=== PATIENT | female | born 1965 | race Caucasian/White ===

== ENCOUNTER 2020-10-21 04:47 | Observation (INO) | payer OTHER ==
[2020-10-21 05:38] LABS: Absolute Lymphocytes (CBC) 2.6 K/uL (0.7-4.9); Basophils % 0.9 % (0-1.3); Hematocrit 45.5 % (36.0-45.0); Lymphocytes % 33.6 % (15.3-44.8); MPV 8.6 fL (7.6-11.3)
[2020-10-21] MEDS ORDERED: NA CHLORIDE 0.9% 1,000 ML ONE ×2 (05:38→07:10)
[2020-10-21] MEDS ORDERED: KETOROLAC 30 MG/ML INJ ONE (05:38)
[2020-10-21] MEDS ORDERED: ONDANSETRON 4 MG/2 ML VIAL ONE ×2 (05:38→07:10)
[2020-10-21] MEDS ORDERED: MORPHINE 4 MG/ML SYR ONE (05:38)
[2020-10-21 05:50] LABS: Albumin 3.5 g/dL (3.4-5.0); Bilirubin Direct 0.2 mg/dL (0-0.2); Bilirubin Total 0.7 mg/dL (0.2-1.0); Potassium 3.7 mmol/L (3.5-5.1); Protein, Total 7.7 g/dL (6.4-8.2)
[2020-10-21] MEDS ORDERED: CEFTRIAXONE/SWI 1gm 1 GM/10 ML SYR ONE (06:00)
--- NOTE | 2020-10-21 06:55 | ER ---
Nurse's Notes [facility] Name: Vasyl Singh Age: 54 yrs Sex: Female : 1965 Arrival Date: 10/21/2020 Time: 04:50 Bed 6 Private MD: Diagnosis: Hydronephrosis with renal and ureteral calculous obstruction-1 cm . left renal pelvis Presentation: 10/21 05:10 Chief complaint: Patient states: she has been having left flank pain x 1 week but got bb worse tonight denies vomiting or diarrhea. Coronavirus screen: At this time, the client does not indicate any symptoms associated with coronavirus-19. Ebola Screen: No symptoms or risks identified at this time. Initial Sepsis Screen: Does the patient meet any 2 criteria? No. Patient's initial sepsis screen is negative. Does the patient have a suspected source of infection? No. Patient's initial sepsis screen is negative. Risk Assessment: Do you want to hurt yourself or someone else? Patient reports no desire to harm self or others. Onset of symptoms was October 14, 2020. 05:10 Method Of Arrival: Ambulatory bb 05:10 Acuity: BRAN 3 bb Historical: - Allergies: 05:13 No Known Allergies; bb - Home Meds: 05:13 None [Active]; bb - PSHx: 05:13 hysterectomy; Cholecystectomy; knee surgery; bb - Immunization history:: Adult Immunizations unknown, Client reports receiving the 1st dose of the Covid vaccine, July 2020 J\T\J. - Social history:: Smoking status: Patient denies any tobacco usage or history of. - Family history:: not pertinent. Screenin:14 Abuse screen: Denies threats or abuse. Nutritional screening: No deficits noted. jb4 Tuberculosis screening: No symptoms or risk factors identified. Fall Risk Assessment: 05:14 General: Appears in no apparent distress. uncomfortable, Behavior is cooperative, jb4 appropriate for age, anxious. Pain: Complains of pain in left low back Pain radiates to anterior aspect of left lateral abdomen Pain currently is 10 out of 10 on a pain scale. Neuro: Level of Consciousness is awake, alert, obeys commands, Oriented to person, place, time, situation. Cardiovascular: Patient's skin is warm and dry. Respiratory: Airway is patent Respiratory effort is even, labored, Respiratory pattern is regular, symmetrical. GI: No signs and/or symptoms were reported involving the gastrointestinal system. : Reports pain in left flank(s). EENT: No signs and/or symptoms were reported regarding the EENT system. Derm: Skin is intact, Skin is pink, warm \T\ dry. Musculoskeletal: Circulation, motion, and sensation intact. Range of motion: intact in all extremities. 06:08 Reassessment: Patient appears in no apparent distress at this time. Patient and/or jb4 family updated on plan of care and expected duration. Pain level reassessed. Patient is alert, oriented x 3, equal unlabored respirations, skin warm/dry/pink. 07:03 Reassessment: Pt reports having the J\T\J COVID vaccine in July. jl7 Vital Signs: 05:10 BP 156 / 90; Pulse 98; Resp 22; Temp 98(O); Pulse Ox 96% on R/A; Weight 143.79 kg (R); bb Height 5 ft. 7 in. (170.18 cm) (R); Pain 10/10; 06:08 BP 145 / 74; Pulse 79; Resp 16; Pulse Ox 97% on R/A; jb4 05:10 Body Mass Index 49.65 (143.79 kg, 170.18 cm) bb ED Course: 04:50 Patient arrived in ED. es 05:04 Héctor Rowell MD is Attending Physician. tiago 05:13 Triage completed. bb 05:13 Arm band placed on Patient placed in an exam room, on a stretcher, on pulse oximetry. bb 05:14 Patient has correct armband on for positive identification. Bed in low position. Call [facility] light in reach. Side rails up X 1. 05:14 Initial lab(s) drawn, by al, sent to lab. Inserted saline lock: 18 gauge in right jb4 antecubital area, using aseptic technique. Blood collected. 05:[address] RN is Primary Nurse. jb4 05:37 CT Stone Protocol In Process Unspecified. EDMS 06:46 Keyon Valentine DO is Hospitalizing Provider. [facility] 07:49 Urine collected: clean catch specimen, cloudy. dh3 08:06 No provider procedures requiring assistance completed. Patient admitted, IV remains in hb place. Administered Medications: 05:20 Drug: Zofran (Ondansetron) 4 mg Route: IVP; Site: right antecubital; jb4 06:00 Follow up: Response: No adverse reaction jb4 05:22 Drug: Ketorolac 30 mg Route: IVP; Site: right antecubital; jb4 06:00 Follow up: Response: No adverse reaction; Marked relief of symptoms; Pain is decreased jb4 05:22 Drug: morphine 4 mg Route: IVP; Site: right antecubital; jb4 06:00 Follow up: Response: No adverse reaction; Marked relief of symptoms; Pain is decreased; jb4 RASS: Alert and Calm (0) 05:59 Drug: NS 0.9% 1000 ml Route: IV; Rate: 1 bolus; Site: right antecubital; jb4 07:16 Follow up: Response: No adverse reaction; IV Status: Completed infusion; IV Intake: hb 1000ml 05:59 Drug: Rocephin (cefTRIAXone) 1 grams Route: IV; Rate: per protocol; Site: right jb4 antecubital; 06:02 Follow up: Response: No adverse reaction; IV Status: Completed infusion; IV Intake: [id number] 06:52 Drug: Zofran (Ondansetron) 4 mg Route: IVP; Site: right antecubital; jb4 07:29 Follow up: Response: No adverse reaction hb 06:55 Drug: Flomax (tamsulosin) 0.4 mg Route: PO; jb4 06:55 Drug: Dilaudid (HYDROmorphone) 1 mg Route: IVP; Site: right antecubital; jb4 07:29 Follow up: Response: No adverse reaction hb 07:19 Drug: NS 0.9% 1000 ml Route: IV; Rate: 1 bolus; Site: right antecubital; hb Intake: 06:02 IV: 10ml; Total: 10ml. jb4 07:16 IV: 1000ml; Total: 1010ml. hb Outcome: 06:54 Decision to Hospitalize by Provider. tiago 08:06 Admitted to ER Hold. Please see [facility] for further documentation. hb 08:06 Condition: stable 08:06 Instructed on the need for admit, Demonstrated understanding of instructions. 09:03 Patient left the ED. hb Signatures: Dispatcher [employer] Héctor Malik MD MD cha Salyer, Edna es Ballard, Brenda, RN RN bb Hermelinda Weiss, RN RN hb Kye Lane, RN RN jb4 Itz Coleman, RN RN jl7 Umu Medley 3
--- NOTE | 2020-10-21 06:55 | EDPHYS ---
Physician Documentation [facility] Name: Vasyl Singh Age: 54 yrs Sex: Female : 1965 Arrival Date: 10/21/2020 Time: 04:50 Bed 6 Private MD: ED Physician Héctor Rowell HPI: 10/21 05:15 This 54 yrs old Female presents to ER via Ambulatory with complaints of Back tiago Pain. 05:15 The patient presents with pain that is acute, with no known mechanism of injury. The tiago symptoms are located in the left low back and left mid back. Onset: The symptoms/episode began/occurred 1 week(s) ago. The pain radiates to the left low back and left mid back. Associated signs and symptoms: Pertinent positives: abdominal pain. The problem was sustained from unknown cause. Modifying factors: The patient symptoms are alleviated by nothing, the patient symptoms are aggravated by any movement, nothing. Severity of symptoms: At their worst the symptoms were moderate, in the emergency department the symptoms are actually worse. The patient has not experienced similar symptoms in the past. Historical: - Allergies: 05:13 No Known Allergies; bb - Home Meds: 05:13 None [Active]; bb - PSHx: 05:13 hysterectomy; Cholecystectomy; knee surgery; bb - Immunization history:: Adult Immunizations unknown, Client reports receiving the 1st dose of the Covid vaccine, July 2020 J\T\J. - Social history:: Smoking status: Patient denies any tobacco usage or history of. - Family history:: not pertinent. ROS: 05:15 Constitutional: Negative for fever, chills, and weight loss, Eyes: Negative for injury, tiago pain, redness, and discharge, ENT: Negative for injury, pain, and discharge, Neck: Negative for injury, pain, and swelling, Cardiovascular: Negative for chest pain, palpitations, and edema, Respiratory: Negative for shortness of breath, cough, wheezing, and pleuritic chest pain, : Negative for injury, bleeding, discharge, and swelling, MS/Extremity: Negative for injury and deformity, Skin: Negative for injury, rash, and discoloration, Neuro: Negative for headache, weakness, numbness, tingling, and seizure, Psych: Negative for depression, anxiety, suicide ideation, homicidal ideation, and hallucinations, Allergy/Immunology: Negative for hives, rash, and allergies, Endocrine: Negative for neck swelling, polydipsia, polyuria, polyphagia, and marked weight changes, Hematologic/Lymphatic: Negative for swollen nodes, abnormal bleeding, and unusual bruising. 05:15 Abdomen/GI: Positive for abdominal pain, nausea and vomiting, of the posterior aspect of left lateral abdomen, anterior aspect of left lateral abdomen and left lower quadrant. 05:15 : Positive for burning with urination, of the posterior aspect of left lateral abdomen, anterior aspect of left lateral abdomen and left lower quadrant. Exam: 05:15 Constitutional: This is a well developed, well nourished patient who is awake, alert, tiago and in no acute distress. Head/Face: Normocephalic, atraumatic. Eyes: Pupils equal round and reactive to light, extra-ocular motions intact. Lids and lashes normal. Conjunctiva and sclera are non-icteric and not injected. Cornea within normal limits. Periorbital areas with no swelling, redness, or edema. ENT: Nares patent. No nasal discharge, no septal abnormalities noted. Tympanic membranes are normal and external auditory canals are clear. Oropharynx with no redness, swelling, or masses, exudates, or evidence of obstruction, uvula midline. Mucous membranes moist. Neck: Trachea midline, no thyromegaly or masses palpated, and no cervical lymphadenopathy. Supple, full range of motion without nuchal rigidity, or vertebral point tenderness. No Meningismus. Chest/axilla: Normal chest wall appearance and motion. Nontender with no deformity. No lesions are appreciated. Cardiovascular: Regular rate and rhythm with a normal S1 and S2. No gallops, murmurs, or rubs. Normal PMI, no JVD. No pulse deficits. Respiratory: Lungs have equal breath sounds bilaterally, clear to auscultation and percussion. No rales, rhonchi or wheezes noted. No increased work of breathing, no retractions or nasal flaring. Abdomen/GI: Soft, non-tender, with normal bowel sounds. No distension or tympany. No guarding or rebound. No evidence of tenderness throughout. Back: No spinal tenderness. No costovertebral tenderness. Full range of motion. Female : Normal external genitalia. Skin: Warm, dry with normal turgor. Normal color with no rashes, no lesions, and no evidence of cellulitis. MS/ Extremity: Pulses equal, no cyanosis. Neurovascular intact. Full, normal range of motion. Neuro: Awake and alert, GCS 15, oriented to person, place, time, and situation. Cranial nerves II-XII grossly intact. Motor strength 5/5 in all extremities. Sensory grossly intact. Cerebellar exam normal. Normal gait. Psych: Awake, alert, with orientation to person, place and time. Behavior, mood, and affect are within normal limits. 05:15 Musculoskeletal/extremity: DVT Exam: No signs of deep vein thrombosis. no pain, no swelling, no tenderness, negative Homans' sign noted on exam, no appreciated bluish discoloration, no erythema, no increased warmth. Vital Signs: 05:10 BP 156 / 90; Pulse 98; Resp 22; Temp 98(O); Pulse Ox 96% on R/A; Weight 143.79 kg (R); bb Height 5 ft. 7 in. (170.18 cm) (R); Pain 10/10; 06:08 BP 145 / 74; Pulse 79; Resp 16; Pulse Ox 97% on R/A; jb4 05:10 Body Mass Index 49.65 (143.79 kg, 170.18 cm) bb MDM: 05:07 Patient medically screened. [facility] 05:18 Differential diagnosis: Obesity Pyelonephritis Renal Infarction Ureterolithiasis. Data [facility] reviewed: vital signs, nurses notes, lab test result(s), CBC, electrolytes, radiologic studies, CT scan. 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 Counseling: I had a detailed discussion with the patient and/or guardian regarding: the historical points, exam findings, and any diagnostic results supporting the discharge/admit diagnosis, lab results, radiology results. 10/21 05:14 Order name: Basic Metabolic Panel [facility] 10/21 05:14 Order name: CBC with Diff; Complete Time: 06:19 [facility] 10/21 05:14 Order name: Hepatic Function [facility] 10/21 05:14 Order name: Lipase; Complete Time: 06:19 tiago 10/21 05:14 Order name: Urine Culture [facility] 10/21 05:15 Order name: Basic Metabolic Panel; Complete Time: 06:19 EDMS 10/21 05:14 Order name: CT Stone Protocol [facility] 10/21 05:15 Order name: Liver (Hepatic) Function; Complete Time: 06:19 EDSD 10/21 07:49 Order name: Urine Dipstick-Ancillary [facility] 10/21 05:14 Order name: IV Saline Lock; Complete Time: 05:28 [facility] 10/21 05:14 Order name: Labs collected and sent; Complete Time: 05:28 [facility] 10/21 05:14 Order name: Urine Dipstick-Ancillary (obtain specimen); Complete Time: 07:49 [facility] 10/21 07:03 Order name: NPO; Complete Time: 07:29 [facility] Administered Medications: 05:20 Drug: Zofran (Ondansetron) 4 mg Route: IVP; Site: right antecubital; 4 06:00 Follow up: Response: No adverse reaction [facility] 05:22 Drug: Ketorolac 30 mg Route: IVP; Site: right antecubital; 4 06:00 Follow up: Response: No adverse reaction; Marked relief of symptoms; Pain is decreased [facility] 05:22 Drug: morphine 4 mg Route: IVP; Site: right antecubital; jb4 06:00 Follow up: Response: No adverse reaction; Marked relief of symptoms; Pain is decreased; [facility] RASS: Alert and Calm (0) 05:59 Drug: NS 0.9% 1000 ml Route: IV; Rate: 1 bolus; Site: right antecubital; 4 07:16 Follow up: Response: No adverse reaction; IV Status: Completed infusion; IV Intake: hb 1000ml 05:59 Drug: Rocephin (cefTRIAXone) 1 grams Route: IV; Rate: per protocol; Site: right [facility] antecubital; 06:02 Follow up: Response: No adverse reaction; IV Status: Completed infusion; IV Intake: [id number] 06:52 Drug: Zofran (Ondansetron) 4 mg Route: IVP; Site: right antecubital; 4 07:29 Follow up: Response: No adverse reaction hb 06:55 Drug: Flomax (tamsulosin) 0.4 mg Route: PO; jb4 06:55 Drug: Dilaudid (HYDROmorphone) 1 mg Route: IVP; Site: right antecubital; 4 07:29 Follow up: Response: No adverse reaction hb 07:19 Drug: NS 0.9% 1000 ml Route: IV; Rate: 1 bolus; Site: right antecubital; hb Disposition Summary: 10/21/20 06:54 Hospitalization Ordered Hospitalization Status: Observation tiago Provider: Keyon Valentine tiago Condition: Stable tiago Problem: new tiago Symptoms: have improved tiago Bed/Room Type: Standard tiago Location: [facility] ER HOLD(10/21/20 08:06) hb Room Assignment: ERHOLD-(10/21/20 08:06) hb Diagnosis - Hydronephrosis with renal and ureteral calculous obstruction - 1 cm . left renal tiago pelvis Discharge Instructions: - Discharge Summary Sheet tiago - Dysuria tiago - Kidney Stones tiago - Kidney Stones, [id number] tiago - Hydronephrosis tiago Forms: - Medication Reconciliation Form tiago - SBAR form tiago Prescriptions: - tamsulosin 0.4 mg Oral capsule - take 1 capsule by ORAL route once daily 1/2 hour following the same meal each tiago day; 20 capsule; Refills: 0, Product Selection Permitted - Zofran 4 mg Oral Tablet - take 1 tablet by ORAL route every 12 hours As needed; 20 tablet; Refills: 0, [facility] Product Selection Permitted - Cipro 500 mg Oral Tablet - take 1 tablet by ORAL route every 12 hours for 7 days; 14 tablet; Refills: 0, [facility] Product Selection Permitted - Tramadol 50 mg Oral Tablet - take 2 tablet by ORAL route every 8 hours as needed; 26 tablet; Refills: 0, [facility] Product Selection Permitted Signatures: Dispatcher [employer] Héctor Malik MD MD cha Ballard, Brenda, RN RN bb Baxter, Heather, RN RN hb Bryson, James RN RN jb4 Itz Coleman RN RN jl7 Corrections: (The following items were deleted from the chart) 08:06 06:54 Telemetry/MedSurg (observation) tiago hb 08:06 06:54 tiago hb 08:06 08:06 hb hb
[2020-10-21] MEDS ORDERED: TAMSULOSIN 0.4 MG SR CAP ONE (07:10)
[2020-10-21] MEDS ORDERED: HYDROMORPHONE HCL 1 MG/ML INJ ONE (07:10)
[2020-10-21] MEDS ORDERED: TRAMADOL HCL 50 MG TAB PO PRN (07:37)
[2020-10-21] MEDS ORDERED: ACETAMINOPHEN 650MG/RECT SUPP PR PRN (07:37)
[2020-10-21] MEDS ORDERED: ACETAMINOPHEN 500 MG TAB PO PRN (07:37)
[2020-10-21] MEDS ORDERED: HYDROCODONE/APAP 7.5/325 MG TAB PO PRN (07:37)
[2020-10-21] MEDS ORDERED: MORPHINE 2 MG/ML SYR IV PRN (07:37)
[2020-10-21] MEDS ORDERED: ONDANSETRON 4 MG/2 ML VIAL IV PRN (07:37)
[2020-10-21 07:46] VITALS: BMI 49.7
[2020-10-21 07:49] LABS: Urine Blood 3+ (Negative); Urine Glucose Negative (Negative); Urine Protein 2+ (Negative); Urine Specific Gravity 1.025 (1.005-1.030)
[2020-10-21 07:55] VITALS: BP 138/86; TEMP 98.7
[2020-10-21] MEDS ORDERED: D5 0.45 NS 1,000 ML IV SCH (08:00)
[2020-10-21] MEDS ORDERED: D5 0.45 NS 1,000 ML IV ONE (08:50)
[2020-10-21] MEDS ORDERED: CEFTRIAXONE 1 GM/NS 50 ML 1 GM/50 ML BAG IV SCH (09:00)
[2020-10-21 09:16] VITALS: O2SAT 97
[2020-10-21] MEDS ORDERED: Ringers Lactate 1,000 ML IV ONE (09:45)
[2020-10-21] MEDS ORDERED: DIAZEPAM 5 MG TABLET ONE (10:00)
--- NOTE | 2020-10-21 11:12 | RAD REPORT ---
EXAM DESCRIPTION: RAD - Abdomen 1 View (KUB) - 10/21/2020 10:40 am CLINICAL HISTORY: L kidney stone Pain COMPARISON: No comparisons FINDINGS: The bowel gas pattern is non-obstructive. No evidence of free air or pneumatosis. Small ca lcification is present inferior aspect left kidney. No significant bony findings. Cholecystectomy. IMPRESSION: Left inferior renal calculus.
--- NOTE | 2020-10-21 11:37 | P.HP ---
Certification for Inpatient Patient admitted to: Observation With expected LOS: <2 Midnights Patient will require the following post-hospital care: None Practitioner: I am a practitioner with admitting privileges, knowledge of patient current condition, hospital course, and medical plan of care. Services: Services provided to patient in accordance with Admission requirements found in Title 42 Section 412.3 of the Code of Federal Regulations Patient History Date of Service: 10/21/20 Primary Care Provider: Dr. Shepherd([place], [place]) Reason for admission: Flank pain History of Present Illness: 54-year-old female presented with left flank pain for over a week. She had seen her PCP early in the week for back pain. She was given medication for pain. Pain persisted. She denied any nausea, vomiting, chest pain or shortness of breath. Flank pain proceeded to get worse. She came to the ER for further evaluation. In the ER patient was evaluated. CBC unremarkable. Sodium 142, potassium 3.7. BUN of 13, creatinine 1.18 with a GFR 47. Glucose 116. AST 55, ALT 83. Lipase unremarkable. CT scan revealed mild left hydronephrosis with 1.0 cm renal calculus. Small nonobstructing calculi also noted to the left side. Patient was admitted for further evaluation and treatment. Urology was consulted to further address. Allergies No Known Allergies Allergy (Unverified 10/21/20 07:37) Home Medications: Ciprofloxacin HCl [Cipro 500 MG Tablet] 500 mg PO BID #14 tab 10/21/20 Oxycodone HCl/Acetaminophen [Percocet 5-325 mg Tablet] 1 each PO TID PRN #15 tablet 10/21/20 - Past Medical/Surgical History -: Fatty liver -: Obesity, BMI 49 -: Chronic back pain -: 2 back surgeries -: Cholecystectomy -: -: Hysterectomy Psychosocial/ Personal History: - Family History Family History: Reviewed- Non-Contributory - Social History Smoking Status: Never smoker Alcohol use: No CD- Drugs: No Caffeine use: Yes Place of Residence: Home Review of Systems General: As per HPI Eyes: Unremarkable ENT: Unremarkable Respiratory: Unremarkable Cardiovascular: Unremarkable Gastrointestinal: Abdominal Pain Genitourinary: Unremarkable Musculoskeletal: Unremarkable Integumentary: Unremarkable Neurological: Unremarkable Lymphatics: Unremarkable Physical Examination - Vital Signs Temperature: 98.7 F Blood Pressure: 138/86 Pulse: 102 Respirations: 17 Pulse Ox (%): 95 - Studies Laboratory Data (last 24 hrs) 10/21/20 05:14: WBC 7.60, Hgb 15.6 H, Hct 45.5 H, Plt Count 268 10/21/20 05:14: Sodium 142, Potassium 3.7, BUN 13, Creatinine 1.18, Glucose 116 H, Total Bilirubin 0.7, AST 55 H, ALT 83 H, Alkaline Phosphatase 128 H, Lipase 139 Assessment and Plan - Plan CT Scan: Mild left hydronephrosis with 1.0 cm calculus in the left renal pelvis Small additional nonobstructing left renal calculus Mild hepatomegaly with steatosis Physical Exam: GENERAL: Vital signs stable. Patient alert, cooperative. VITAL SIGNS: Reviewed HEENT: Head is normocephalic and atraumatic. Extraocular muscles are intact. Pupils are equal, round, and reactive to light and accommodation. Nares appeared normal. Mouth is well hydrated and without lesions. Mucous membranes are moist. NECK: Supple. No carotid bruits. No lymphadenopathy or thyromegaly. LUNGS: Clear to auscultation. No crackles or wheezes are heard. HEART: Regular rate and rhythm, no appreciable gallops, rubs, murmurs or extra heart sounds ABDOMEN: Some flank pain noted but improved with pain medication. EXTREMITIES: Without any cyanosis, clubbing, rash, lesions or peripheral edema. NEUROLOGIC: The patient is oriented to person, place and time. Strength and sensation are grossly intact. Face is symmetric. SKIN: Normal color, turgor and temperature. No ulcerations or rashes noted. Impression: Left flank pain secondary to mild left hydronephrosis with 1.0 cm calculus in the left renal pelvis with additional nonobstructing small left renal calculi Fatty liver Plan: Patient admitted for further evaluation and treatment. Urology consulted. Anticipate ureteral stent and likely discharge. Code Status: Full Code DVT prophylaxis: SCD Advanced Care Planning-30 minutes: Home at discharge. Discharge Plan: Home Plan to discharge in: 24 Hours - Advance Directives Does patient have a Living Will: No Does patient have a Durable POA for Healthcare: No - Code Status/Comfort Care Code Status Assessed: Yes (Patient full code) Time Spent Managing Pts Care (In Minutes): 55
--- NOTE | 2020-10-21 11:41 | P.DS ---
Admission Date: 10/21/20 Discharge Date: 10/21/20 Primary Care Provider: Dr. Shepherd([place], [place]) Disposition: ROUTINE DISCHARGE Discharge Condition: GOOD Reason for Admission: Flank pain Consultations: UrologyDdavin Johnson Procedures: CT Scan: Mild left hydronephrosis with 1.0 cm calculus in the left renal pelvis Small additional nonobstructing left renal calculus Mild hepatomegaly with steatosis Follow up KUB: COMPARISON: No comparisons FINDINGS: The bowel gas pattern is non-obstructive. No evidence of free air or pneumatosis. Small calcification is present inferior aspect left kidney. No significant bony findings. Cholecystectomy. IMPRESSION: Left inferior renal calculus. Medical problem list: Left flank pain secondary to mild left hydronephrosis with 1.0 cm calculus in the left renal pelvis with additional nonobstructing small left renal calculi Fatty liver Brief History of Present Illness: 54-year-old female presented with left flank pain for over a week. She had seen her PCP early in the week for back pain. She was given medication for pain. Pain persisted. She denied any nausea, vomiting, chest pain or shortness of breath. Flank pain proceeded to get worse. She came to the ER for further evaluation. In the ER patient was evaluated. CBC unremarkable. Sodium 142, potassium 3.7. BUN of 13, creatinine 1.18 with a GFR 47. Glucose 116. AST 55, ALT 83. Lipase unremarkable. CT scan revealed mild left hydronephrosis with 1.0 cm renal calculus. Small nonobstructing calculi also noted to the left side. Patient was admitted for further evaluation and treatment. Urology was consulted to further address. Hospital Course: Patient found to have mild left hydronephrosis with a 1 cm calculus to the left renal pelvis. Small nonobstructing calculi also identified. The patient was admitted for treatment. Urology was consulted. Urology plans on for urology intervention including placement of ureteral stent. Patient declined to have the procedure done. Pain improved. Patient will be discharged home. Patient will follow up with urology within 1 week to further evaluate and address. Patient will likely require outpatient placement of ureteral stent and lithotripsy. At discharge patient will continue with Cipro 500 mg 1 pill twice daily for 7 days. A limited supply of Percocet 5/325 mg 1 pill 3 times a day as needed for pain will be provided. Education on renal calculi, ureteral stent and lithotripsy will be provided. If symptoms worsen she is to contact urology for further recommendation. Patient with fatty liver. Education on fatty liver will be provided. Patient with history of chronic back pain. Patient may follow-up with her PCP to further address. Vital Signs/Physical Exam: Temp Pulse Resp BP Pulse Ox 98.7 F 102 H 17 138/86 95 10/21/20 11:37 10/21/20 11:37 10/21/20 11:37 10/21/20 11:37 10/21/20 11:37 General: Alert, In no apparent distress, Oriented x3, Cooperative HEENT: Atraumatic Neck: Supple Respiratory: Clear to auscultation bilaterally, Normal air movement Cardiovascular: Normal pulses, Regular rate/rhythm Gastrointestinal: Normal bowel sounds, No tenderness, No masses, No rebound, No guarding Musculoskeletal: No erythema, No tenderness, No warmth Integumentary: No tenderness/swelling Neurological: Normal speech, Normal strength at 5/5 x4 extr, Normal tone, Normal affect Laboratory Data at Discharge: WBC 7.60 K/uL (4.3-10.9) 10/21/20 05:14 Hgb 15.6 g/dL (12.0-15.0) H 10/21/20 05:14 Hct 45.5 % (36.0-45.0) H 10/21/20 05:14 Plt Count 268 K/uL (152-406) 10/21/20 05:14 Sodium 142 mmol/L (136-145) 10/21/20 05:14 Potassium 3.7 mmol/L (3.5-5.1) 10/21/20 05:14 BUN 13 mg/dL (7-18) 10/21/20 05:14 Creatinine 1.18 mg/dL (0.55-1.3) 10/21/20 05:14 Glucose 116 mg/dL (74-106) H 10/21/20 05:14 Total Bilirubin 0.7 mg/dL (0.2-1.0) 10/21/20 05:14 AST 55 U/L (15-37) H 10/21/20 05:14 ALT 83 U/L (12-78) H 10/21/20 05:14 Alkaline Phosphatase 128 U/L (45-117) H 10/21/20 05:14 Lipase 139 U/L (73-393) 10/21/20 05:14 Home Medications: Ciprofloxacin HCl [Cipro 500 MG Tablet] 500 mg PO BID #14 tab 10/21/20 Oxycodone HCl/Acetaminophen [Percocet 5-325 mg Tablet] 1 each PO TID PRN #15 tablet 10/21/20 New Medications: Ciprofloxacin HCl [Cipro 500 MG Tablet] 500 mg PO BID #14 tab Oxycodone HCl/Acetaminophen [Percocet 5-325 mg Tablet] 1 each PO TID PRN #15 tablet PRN Reason: Pain Scale 5-7 (Moderate) Physician Discharge Instructions: Patient found to have mild left hydronephrosis with a 1 cm calculus to the left renal pelvis. Small nonobstructing calculi also identified. The patient was admitted for treatment. Urology was consulted. Urology plans on for urology intervention including placement of ureteral stent. Patient declined to have the procedure done. Pain improved. Patient will be discharged home. Patient will follow up with urology within 1 week to further evaluate and address. Patient will likely require outpatient placement of ureteral stent and lithotripsy. At discharge patient will continue with Cipro 500 mg 1 pill twice daily for 7 days. A limited supply of Percocet 5/325 mg 1 pill 3 times a day as needed for pain will be provided. Education on renal calculi, ureteral stent and lithotripsy will be provided. If symptoms worsen she is to contact urology for further recommendation. Patient with fatty liver. Education on fatty liver will be provided. Patient with history of chronic back pain. Patient may follow-up with her PCP to further address. Diet: AHA Activity: Ad clementina Followup: NONE,NONE [Primary Care Provider] - Time spent managing pt's care (in minutes): 55
--- NOTE | 2020-10-21 12:29 | CON ---
Preoperative Diagnoses: 1.Left hydronephrosis. 2.Left flank pain radiating into the left lower quadrant. 3.Left nephrolithiasis. 4.Left ureterolithiasis. History Of Present Illness: Mrs. Vu is a 54-year-old woman with no history of kidney stones in t he past, who presents with about a 1-week history of left flank pain that radiates into the left lowe r quadrant. The pain became so severe at home that it was 10/10 in intensity and caused her to come to the emergency department. She had no anorexia, nausea or vomiting, and no documented fevers, but she did have some shaking chills during a pain episode at home. She denied any dysuria associated. Physical Examination: General: Alert, awake, and oriented, in no acute distress at this time. Lungs: No dyspnea or signs of respiratory distress. Abdomen: Soft, nontender, and nondistended. Heart: Pulse was regular, though perhaps mildly tachycardic. Review of the CT revealed a nonobstructing lower pole calculus and an approximately 1 cm calculus in the region of the renal pelvis, but not appearing to directly be causing obstruction at the UPJ at th e time of the CT. Laboratory Assessment: Revealed a normal white blood count and no evidence of renal dysfunction. Urine dipstick revealed positive nitrites and 1+ leukocyte esterase. Assessment And Recommendation: Ms. Vu are a 54-year-old woman with severe flank pain radiating i nto the left lower quadrant associated with left nephrolithiasis, likely causing ball-valve related o bstruction at the UPJ due to a 1 cm calculus also there with questionable urinary tract infection on a urinalysis. I initially counseled the patient and agreed with the recommendation for intervention given the sever ity of her pain and the size of the stones in an effort to relieve the obstruction and prepare the ci rcumstance for later surgical intervention. Initially, the patient seemed somewhat reluctant about p roceeding with ureteral stent placement because I informed her of the potential for stent discomfort causing urinary frequency, urgency, and potentially occasional flank pain. She initially consented t o proceed with left ureteral stent placement, but then upon entry into the holding area, she changed her mind and refused surgery. She was also somewhat hysterical at that time, which the think s may be related to some of the narcotic pain medication she was given. As a result, I recommended a KUB be performed while she was here to assess visibility of the calculi and I reviewed that KUB. One of the stones was clearly visible, approximately 6-7 mm in size, but it appeared to be the stone in the lower pole. The UPJ calculus was not discretely visualizable potentially due to overlying bow el gas. As a result, I counseled the patient that shockwave lithotripsy would not be the best option as it would not definitively rid her off all of the stones, particularly the 1 that may be causing o bstruction. As a result, we will discuss when she comes in for followup details of ureteroscopy with laser lithotripsy and stent placement. Meanwhile, she will be discharged with a prescription for ci profloxacin for 7 days while we await the pending culture results and sensitivities, and narcotics fo r pain management. PADMINI/SUSANNAH Voice ID: [id number] Report ID: [id number]
--- NOTE | 2020-10-21 16:49 | RAD REPORT ---
EXAM DESCRIPTION: CT Abdomen and Pelvis, Renal Stone Protocol COMPARISON: None. CLINICAL HISTORY: Abdominal distention;Flank pain TECHNIQUE: CT of the abdomen and pelvis was acquired without IV contrast material, according to the renal stone protocol. Coronal and sagittal reconstructions were obtained. Automated exposure contro l was utilized on this examination as a dose lowering technique. FINDINGS: Lung bases: Clear. *Limited evaluation of the solid organs due to lack of IV contrast. Liver: Mild hepatic enlargement measuring 17.2 cm with steatosis. Gallbladder and biliary: Cholecystectomy. Unremarkable biliary tree. Pancreas: Fatty infiltration. Spleen: Normal. Adrenal glands: Normal. Kidneys and ureters: Mild left hydronephrosis is present. A 1.0 cm calculus is present in the left re nal pelvis. This may or may not be obstructing. A nonobstructing 7 mm calculus is also present on the left. A small right extrarenal pelvis is present. Stomach and Small Bowel: The stomach is normal. There is a 2.3 cm periampullary diverticulum. Urinary bladder: A trace amount of gas is noted in the bladder and is favored to be iatrogenic. Uterus and Adnexa: Hysterectomy. Colon and Appendix: The colon is unremarkable. No evidence of appendicitis. Peritoneal cavity: No ascites or free air. Retroperitoneum and lymph nodes: Normal. Vascular: Normal. Musculoskeletal and soft tissues: Soft tissues are unremarkable. Lumbar spondylosis. No aggressive milton ne lesions. No compression fracture. IMPRESSION: 1. Mild left hydronephrosis with a 1.0 cm calculus in the left renal pelvis which may or may not be obstructing (exact position relative to the ureteropelvic junction is indeterminate). 2. Small additional nonobstructing left renal calculus. 3. Mild hepatomegaly with steatosis. Electronically signed by: Baron Shelby MD 10/21/2020 6:20 AM CDT Due to temporary technical issues with the PACS/Fluency reporting system, reports are being signed by the in house radiologists without review as a courtesy to insure prompt reporting. The interpreting radiologist is fully responsible for the content of the report.
[2020-10-22] MEDS ORDERED: CEFTRIAXONE/SWI 1gm 1 GM/10 ML SYR IV SCH (06:00)
== END 2020-10-21 12:20 | disposition home or self-care (01) ==
LOC: ER 04:47 → ERHOLD 07:14
PROVIDERS: ADMIT Family Medicine; ATTEND Family Medicine
DX: N13.2 Hydronephrosis with renal and ureteral calculous obstruction (principal); N20.0 Calculus of kidney; K76.0 Fatty (change of) liver, not elsewhere classified; M54.9 Dorsalgia, unspecified; G89.29 Other chronic pain; E66.9 Obesity, unspecified; Z68.42 Body mass index [BMI] 45.0-49.9, adult; Z53.29 Procedure and treatment not carried out because of patient's decision for other reasons; Z90.49 Acquired absence of other specified parts of digestive tract; Z90.710 Acquired absence of both cervix and uterus
CPT/HCPCS: 96361; 87040 ×2; 87088; 85025; 87086; 80048; 36415; 80076; 81003; 83690; 76377; 74176; 74018; 96375; 96374; 99285; J1170; J0696; J7799; J7120; J7030 ×2; J2405 ×2; G0378 ×2

== ENCOUNTER 2020-10-28 08:09 | Day surgery (SDC) | payer OTHER ==
[2020-10-28] MEDS ORDERED: ALBUTEROL 2.5 MG/3 ML NEB SOL ONE (08:55)
[2020-10-28] MEDS ORDERED: Gentamicin Inj 240 MG in NA CHLORIDE 0.9% 100 ML IVPB ONE (09:00)
[2020-10-28] MEDS ORDERED: AMPICILLIN SODIUM 2 GM in NA CHLORIDE 0.9% 100 ML IVPB ONE (09:00)
[2020-10-28] MEDS ORDERED: Ringers Lactate 1,000 ML IV ONE (09:26)
[2020-10-28] MEDS ORDERED: MIDAZOLAM HCL 2 MG/2 ML INJ ONE ×2 (10:51→12:21)
[2020-10-28] MEDS ORDERED: propofoL 200 MG/20 ML VIAL IV ONE (12:21)
[2020-10-28] MEDS ORDERED: LIDOCAINE 1% MPF 5 ML VIAL ONE (12:21)
[2020-10-28] MEDS ORDERED: ONDANSETRON 4 MG/2 ML VIAL ONE ×2 (12:21→15:32)
[2020-10-28] MEDS ORDERED: FENTANYL CITR 100 MCG/2 ML ONE (12:21)
[2020-10-28] MEDS ORDERED: Oxycodone HCl/Acetaminophen 1 TAB TAB PO PRN (12:24)
[2020-10-28] MEDS ORDERED: PHENAZOPYRIDINE 100MG TAB PO ONE ×3 (12:24→15:33)
[2020-10-28] MEDS: MEPERIDINE HCL 25 MG/ML SYR ONE ×2 (13:54→13:59)
[2020-10-28] MEDS ORDERED: MEPERIDINE HCL 25 MG/ML SYR ONE (14:34)
--- NOTE | 2020-10-28 14:58 | OP ---
Surgeon: MELINA GALICIA Preoperative Diagnoses: 1.Left obstructive ureterolithiasis - 11 mm calculus at the ureteropelvic junction. 2.Left nephrolithiasis, approximately 9 mm calculus in the lower pole. 3.Severe left flank pain. Postoperative Diagnoses: 1.Left obstructive ureterolithiasis - 11 mm calculus at the ureteropelvic junction. 2.Left nephrolithiasis, approximately 9 mm calculus in the lower pole. 3.Severe left flank pain. 4.Left proximal ureteral/ureteropelvic junction stricture. Indication For Procedure: Ms. Singh presented to the emergency department last Tuesday with severe pain associated with a ball-valving and obstructing left UPJ calculus. She was recommended for a ur eteral stent, but because of some emotional psychological issues, she was unable to calm herself suff iciently to proceed with the stent placement. As a result, she saw me in followup in the office and was scheduled for definitive management today. Procedure In Detail: The patient was consented in the preoperative holding area before being transfe rred to operative suite where general anesthesia was induced. She was given ampicillin 2 g and genta micin 240 mg IV antimicrobial prophylaxis. Pneumo boots were provided for DVT prophylaxis. She was placed in the lithotomy position, padded and secured to the table. The case was begun after her mayra derrek were prepped using Hibiclens and draped in standard fashion. Using a 22-Paraguayan rigid cystoscop e, the urethra was traversed and the bladder entered. The bladder was briefly surveyed, and no shaan rning mucosal lesions, foreign bodies or stones were noted, but there were areas of papillary cystiti s noted throughout. I identified the ureteral orifice orthotopically within the trigone and cannulat ed the left ureteral orifice using the tip of the Sensor wire and a 5-Paraguayan ureteral access catheter . A retrograde pyelogram was then performed. Left retrograde pyelography: Using a 70:30 mixture of Omnipaque and saline, contrast was injected via the 5-Paraguayan ureteral access catheter and did propagate up the distal into the mid and proximal ureter before entering the renal pelvis and calices. Noted to be radiopaque within the renal pelvis and the lower pole where the 2 ca lculi previously observed. As a result, I passed a Sensor wire into the upper pole of the kidney and then used a dual-lumen catheter to pass a second Bentson wire into the upper pole of the kidney. Be cause the ureteral orifice and distal ureter were somewhat tight, I then utilized a ureteral access s nicanor to gain access into the mid ureter. Then, I was able to pass the flexible ureteroscope under p ressurized irrigation and direct vision beyond a point of strictured disrupted mucosa in the left ure teropelvic junction where the stone had previously impacted. With some difficulty, I was able to alayna igate it into the upper pole where the stone now resided. Then, using a 200 nm laser fiber with a po wer setting of 1.0 joules and between 15 hertz and increasing the power to 1.4 joules and 15 hertz, I was then able to fragment a very hard stone into fragments that were approximately 1 mm in diameter maximum. Additional efforts at further dusting the stone fragment was of little value given the extr lyle hard nature of the stones. As a result, I then turned my attention to surveying the remainder of the calices and I surveyed the upper and mid pole calices and the anterior calices before entering t he lower pole where an additional calculus approximately 9-10 mm was noted. There was significant fi brinous debris around it. Then, using the laser fiber at the above settings, I again fragmented the stone into dust. All fragments were smaller than the size of the laser fiber at the end of fragmenta tion of the lower pole stone. I then returned to survey the mid and upper pole calices and again att empted to further fragment the fragments within the upper pole with limited success. As a result, be cause of the extreme hard nature of the stone, the generally successful fragmentation of them, but th e tight nature of the ureter risking ureteral injury, I then elected to discontinue further efforts a t laser lithotripsy and then retracted the flexible ureteroscope surveying the ureter along the entir ety of its course down and into the bladder. The ureteral access sheath was removed along the way. Again was noted an area of mucosal disruption at the UPJ and risk of stricture formation. As a resul t, I decompressed the bladder and replaced the cystoscope back-loading it over the indwelling safety wire, and over the safety wire, I passed a 6-Par[place]ayan by 26 cm double-J left ureteral stent with a coil observed fluoroscopically within the upper pole and 1 cystoscopically within the bladder. I then de compressed her bladder off fluid and urine, and the patient was taken out of the lithotomy position. She was then awakened from general anesthesia, transferred to a stretcher, and then transferred to [facility] recovery room in good condition. Complications: None. Discharge Disposition: I want her to keep the ureteral stent for at least 4-6 weeks given the risk o f stricture formation in the UPJ because of the mucosal disruption observed there. As a result, she may follow up with me or with nurse practitioner, Bj within the next few weeks to discuss that intent, but ultimately extraction should be planned in 4-6 weeks from 10/28/2020. The patient may re quire some prophylactic antimicrobials given her obesity and the risk of colonization based UTI from her perineal and rectal tosha. PADMINI/SUSANNAH Voice ID: [id number] Report ID: [id number]
--- NOTE | 2020-10-28 15:19 | RAD REPORT ---
EXAM DESCRIPTION: RAD - Urography Retrograde - 10/28/2020 3:00 pm CLINICAL HISTORY: STENT COMPARISON: No comparisons FINDINGS: Total fluoro time: 26 seconds
[2020-10-28] MEDS ORDERED: ONDANSETRON 4 MG/2 ML VIAL IV ONE (15:25)
[2020-10-28] MEDS ORDERED: Oxycodone HCl/Acetaminophen 1 TAB TAB PO ONE (15:40)
[2020-10-28] MEDS ORDERED: Oxycodone HCl/Acetaminophen 1 TAB TAB ONE (16:10)
[2020-10-28 16:12] VITALS: BP 140/68; TEMP 98.2; O2SAT 98
== END 2020-10-28 15:45 | disposition home or self-care (01) ==
LOC: OR 08:09
PROVIDERS: ATTEND Urology
PROC: 0T778DZ Dilation of Left Ureter with Intraluminal Device, Via Natural or Artificial Opening Endoscopic (ICD-10-PCS; 2020-10-28)
PROC: 0TF78ZZ Fragmentation in Left Ureter, Via Natural or Artificial Opening Endoscopic (ICD-10-PCS; principal; 2020-10-28 11:15)
DX: N20.2 Calculus of kidney with calculus of ureter (principal)
CPT/HCPCS: 74420; 52356; J2704; J1580; J2250 ×2; J3010; J2175 ×2; J7120; J2405 ×3; J0290

== ENCOUNTER 2022-12-15 02:17 | Emergency (ER) | payer BC ==
--- OUTSIDE RECORDS SUMMARY | 2022-12-15 02:20 | XMS REPORT | Continuity of Care Document ---
:1965 Author Organization [facility] t Address [address] [place] [address] Care Team Providers Name Role Phone Teer_J Attending Clinician Unavailable TamyBessy awad Attending Clinician Unavailable Teer_J Admitting Clinician Unavailable TamyBessy awad Admitting Clinician Unavailable Payers Payer Name Policy Type Policy Number Effective Date Expiration Date Rin park[place] [id number] 2021 (PPO) 00:00:00 [facility] [id number] Problems Condition Condition Condition Status Onset Resolution Last Treating Co mments Source Name Details Category Date Date Treatment Clinician Date COVID-19 Covid-19 Problem Active [place] 3-25 Family 00:00: Practic 00 e Gout Gout Problem Active [facility] 1-04 Family 00:00: Practic 00 e History of History of Problem Active 2020-04 [facility] calculus Calculus 0-29 Family of kidney of Kidney 00:00: Prac tic 00 e Hyperglyce Hyperglyce Problem Active [facility] johnny johnny 5-17 Family 00:00: Practic 00 e Morbid Morbid Problem Active [facility] obesity Obesity 2-11 Family 00:00: Practic 00 e Restrictiv Restrictiv Problem Active [facility] e lung e Lung 2-11 Family disease Disease 00:00: Practic 00 e Vitamin D Vitamin D Problem Active [place] deficiency Deficiency 5-09 Fa wily 00:00: Practic 00 e Severe Severe Problem Active [facility] obesity Obesity 9-11 Family 00:00: Practic 00 e Pure Pure Problem Active 2015-04 [facility] hyperglyce Hyperglyce 0-24 Fa wily ridemia ridemia 00:00: Practic 00 e Benign Benign Problem Active 2015-04 [facility] essential Essential 0-24 Fami ly hypertensi Hypertensi 00:00: Pr actic on on 00 e Interverte Interverte Problem Active 2015-04 [facility] bral disc bral Disc 0-24 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: Practi c of lumbar of Lumbar 00 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 Allergies, Adverse Reactions, Alerts Allergy Allergy Status Severity Reaction(s) Onset Inactive Treating Comm ents Source Name Type Date Date Clinician hydromor DA Active [facility] phone 2-07 Clear HCl 00:00: Russell 00 [facility] ketorola DA Active [facility] c 2-07 Clear trometha 00:00: Russell mine 00 [facility] morphine DA Active [facility] 2-07 Clear 00:00: Russell 00 [facility] Lisinopr Allergy Active [facility] il to Family substanc Practic e e Losartan Allergy Active [facility] to Family substanc Practic e e Irbesart Allergy Active [facility] an to Family substanc Practic e e Social History Smoking Status Start Date Stop Date Source Never Smoker [facility] Medications Ordered Filled Start Stop Current Ordering Indication Dosage Frequency Signature Comments Components Source Medication Medication Date Date Medication? Clinician (SIG) Name Name albuterol albuterol No albuterol [place] sulfate HFA sulfate HFA 3-28 sulfate Family 90 90 00:00: HFA 90 Practic mcg/actuati mcg/actuati 00 mcg/actuat e on aerosol on aerosol ion inhaler inhaler aerosol INHALE 2 INHALE 2 inhaler PUFFS BY PUFFS BY INHALE 2 MOUTH EVERY MOUTH EVERY PUFFS BY 4 HOURS 4 HOURS MOUTH NEEDED NEEDED EVERY 4 HOURS NEEDED albuterol albuterol No albuterol [place] sulfate HFA sulfate HFA 3-28 sulfate Family 90 90 00:00: HFA 90 Practic mcg/actuati mcg/actuati 00 mcg/actuat e on aerosol on aerosol ion inhaler inhaler aerosol INHALE 2 INHALE 2 inhaler PUFFS BY PUFFS BY INHALE 2 MOUTH EVERY MOUTH EVERY PUFFS BY 4 HOURS 4 HOURS MOUTH NEEDED NEEDED EVERY 4 HOURS NEEDED albuterol albuterol No albuterol [place] sulfate HFA sulfate HFA sulfate Family 90 90 HFA 90 Practic mcg/actuati mcg/actuati mcg/actuat e on aerosol on aerosol ion inhaler inhaler aerosol INHALE 2 INHALE 2 inhaler PUFFS BY PUFFS BY INHALE 2 MOUTH EVERY MOUTH EVERY PUFFS BY 4 HOURS 4 HOURS MOUTH NEEDED NEEDED EVERY 4 HOURS NEEDED Aleve 220 Aleve 220 No 1 Aleve 220 [facility] mg tablet mg tablet mg tablet Family Take 1 Take 1 Take 1 Practic tablet by tablet by tablet by e oral route oral route oral route as needed. as needed. as needed. amoxicillin amoxicillin No 1 BID amoxicilli [facility] 500 mg 500 mg n 500 mg Family tablet Take tablet Take tablet Practic 1 tablet 1 tablet Take 1 e twice a day twice a day tablet by oral by oral twice a route for 7 route for 7 day by days. days. oral route for 7 days. hydrocodone hydrocodone No hydrocodon [facility] 10 10 e 10 Family mg-acetamin mg-acetamin mg-acetami Practic ophen 325 ophen 325 nophen 325 e mg tablet mg tablet mg tablet TAKE 1 TAKE 1 TAKE 1 TABLET BY TABLET BY TABLET BY MOUTH EVERY MOUTH EVERY MOUTH 4 HOURS 4 HOURS EVERY 4 NEEDED NEEDED HOURS NEEDED phentermine phentermine No 1capsul Q1D phentermin [facility] 15 mg 15 mg e(s) e 15 mg Family capsule capsule capsule Practi c Take 1 Take 1 Take 1 e capsule capsule capsule every day every day every day by oral by oral by oral route for route for route for 30 days. 30 days. 30 days. take 1 take 1 take 1 tablet by tablet by tablet by mouth daily mouth daily mouth daily Aleve 220 Aleve 220 No 1 Aleve 220 [facility] mg tablet mg tablet mg tablet Family Take 1 Take 1 Take 1 Practic tablet by tablet by tablet by e oral route oral route oral route as needed. as needed. as needed. Aleve 220 Aleve 220 No 1 Aleve 220 [facility] mg tablet mg tablet mg tablet Family Take 1 Take 1 Take 1 Practic tablet by tablet by tablet by e oral route oral route oral route as needed. as needed. as needed. Aleve 220 Aleve 220 No 1 Aleve 220 [facility] mg tablet mg tablet mg tablet Family Take 1 Take 1 Take 1 Practic tablet by tablet by tablet by e oral route oral route oral route as needed. as needed. as needed. cyclobenzap abdulkadirap No 1 TID rich Gloria rine 5 mg rine 5 mg tim 5 mg Family tablet Take tablet Take tablet Practic 1 tablet 3 1 tablet 3 Take 1 e times a day times a day tablet 3 by oral by oral times a route as route as day by needed for needed for oral route 7 days. 7 days. as needed for 7 days. doxycycline doxycycline No 1 BID doxycyclin Junai hyclate 100 hyclate 100 e hyclate Family mg tablet mg tablet 100 mg Pra ctic Take 1 Take 1 tablet e tablet tablet Take 1 twice a day twice a day tablet by oral by oral twice a route for route for day by 10 days. 10 days. oral route for 10 days. Aleve 220 Aleve 220 No 1 Aleve 220 Juani mg tablet mg tablet mg tablet Family Take 1 Take 1 Take 1 Practic tablet by tablet by tablet by e oral route oral route oral route as needed. as needed. as needed. maggiebenzedda bates No 1 TID rich Gloria rine 5 mg rine 5 mg tim 5 mg Family tablet Take tablet Take tablet Practic 1 tablet 3 1 tablet 3 Take 1 e times a day times a day tablet 3 by oral by oral times a route as route as day by needed for needed for oral route 7 days. 7 days. as needed for 7 days. doxycycline doxycycline No 1 BID doxycyclin Juani hyclate 100 hyclate 100 e hyclate Family mg tablet mg tablet 100 mg Pra ctic Take 1 Take 1 tablet e tablet tablet Take 1 twice a day twice a day tablet by oral by oral twice a route for route for day by 10 days. 10 days. oral route for 10 days. Aleve 220 Aleve 220 No 1 Aleve 220 [facility] mg tablet mg tablet mg tablet Family Take 1 Take 1 Take 1 Practic tablet by tablet by tablet by e oral route oral route oral route as needed. as needed. as needed. cyclobenzap abdulkadirap Criss Gloria rine 5 mg rine 5 mg tim 5 mg Family tablet TAKE tablet TAKE tablet Practic 1 TABLET BY 1 TABLET BY TAKE 1 e MOUTH THREE MOUTH THREE TABLET BY TIMES DAILY TIMES DAILY MOUTH FOR 7 DAYS FOR 7 DAYS THREE NEEDED NEEDED TIMES DAILY FOR 7 DAYS NEEDED doxycycline doxycycline No doxycyclin Juani hyclate 100 hyclate 100 e hyclate Family mg tablet mg tablet 100 mg Pra ctic TAKE 1 TAKE 1 tablet e TABLET BY TABLET BY TAKE 1 MOUTH TWICE MOUTH TWICE TABLET BY DAILY FOR DAILY FOR MOUTH 10 DAYS 10 DAYS TWICE DAILY FOR 10 DAYS meloxicam meloxicam No 1 Q1D meloxicam [facility] 15 mg 15 mg 15 mg Family tablet Take tablet Take tablet Practic 1 tablet 1 tablet Take 1 e every day every day tablet by oral by oral every day route for route for by oral 30 days. 30 days. route for 30 days. nitrofurant nitrofurant No 1capsul Q12H nitrofuran [facility] oin oin e(s) toin Family monohydrate monohydrate monohydrat Practic /macrocryst /macrocryst e/macrocry e als 100 mg als 100 mg stals 100 capsule capsule mg capsule Take 1 Take 1 Take 1 capsule capsule capsule every 12 every 12 every 12 hours by hours by hours by oral route oral route oral route for 7 days. for 7 days. for 7 days. prednisone prednisone No 1 Q1D prednisone [facility] 10 mg 10 mg 10 mg Family tablet Take tablet Take tablet Practic 1 tablet 1 tablet Take 1 e every day every day tablet by oral by oral every day route for 7 route for 7 by oral days. days. route for 7 days. Aleve 220 Aleve 220 No 1 Aleve 220 [facility] mg tablet mg tablet mg tablet Family Take 1 Take 1 Take 1 Practic tablet by tablet by tablet by e oral route oral route oral route as needed. as needed. as needed. ciprofloxac ciprofloxac No 1 Q12H ciprofloxa [facility] in 500 mg in 500 mg matti 500 mg Family tablet Take tablet Take tablet Practic 1 tablet 1 tablet Take 1 e every 12 every 12 tablet hours by hours by every 12 oral route oral route hours by for 10 for 10 oral route days. days. for 10 days. cyclobenzap cyclobenzap No cyclobenza [facility] rine 5 mg rine 5 mg tim 5 mg Family tablet TAKE tablet TAKE tablet Practic 1 TABLET BY 1 TABLET BY TAKE 1 e MOUTH THREE MOUTH THREE TABLET BY TIMES DAILY TIMES DAILY MOUTH FOR 7 DAYS FOR 7 DAYS THREE NEEDED NEEDED TIMES DAILY FOR 7 DAYS NEEDED doxycycline doxycycline No doxycyclin [facility] hyclate 100 hyclate 100 e hyclate Family mg tablet mg tablet 100 mg Pra ctic TAKE 1 TAKE 1 tablet e TABLET BY TABLET BY TAKE 1 MOUTH TWICE MOUTH TWICE TABLET BY DAILY FOR DAILY FOR MOUTH 10 DAYS 10 DAYS TWICE DAILY FOR 10 DAYS meloxicam meloxicam No meloxicam [facility] 15 mg 15 mg 15 mg Family tablet TAKE tablet TAKE tablet Practic 1 TABLET BY 1 TABLET BY TAKE 1 e MOUTH EVERY MOUTH EVERY TABLET BY DAY DAY MOUTH EVERY DAY nitrofurant nitrofurant No nitrofuran [facility] oin brigida branham Family monohydrate monohydrate monohydrat Practic /macrocryst /macrocryst e/macrocry e als 100 mg als 100 mg stals 100 capsule capsule mg capsule TAKE 1 TAKE 1 TAKE 1 CAPSULE BY CAPSULE BY CAPSULE BY MOUTH EVERY MOUTH EVERY MOUTH 12 HOURS 12 HOURS EVERY 12 FOR 7 DAYS FOR 7 DAYS HOURS FOR 7 DAYS prednisone prednisone No prednisone [facility] 10 mg 10 mg 10 mg Family tablet TAKE tablet TAKE tablet Practic 1 TABLET BY 1 TABLET BY TAKE 1 e MOUTH EVERY MOUTH EVERY TABLET BY DAY FOR 7 DAY FOR 7 MOUTH DAYS DAYS EVERY DAY FOR 7 DAYS Immunizations Ordered Immunization Filled Immunization Date Status Commen ts Source Name Name COVID-19 vaccine, COVID-19 vaccine, 2020-07-12 Completed [facility] vector-nr, rS-Ad26, vector-nr, rS-Ad26, 00:00:00 Practice PF, 0.5 mL ([employer]) PF, 0.5 mL ([employer]) COVID-19 vaccine, COVID-19 vaccine, 2020-07-12 Completed [facility] vector-nr, rS-Ad26, vector-nr, rS-Ad26, 00:00:00 Practice PF, 0.5 mL ([employer]) PF, 0.5 mL ([employer]) COVID-19 vaccine, COVID-19 vaccine, 2020-07-12 Completed [facility] vector-nr, rS-Ad26, vector-nr, rS-Ad26, 00:00:00 Practice PF, 0.5 mL ([employer]) PF, 0.5 mL ([employer]) COVID-19 vaccine, COVID-19 vaccine, 2020-07-12 Completed [facility] vector-nr, rS-Ad26, vector-nr, rS-Ad26, 00:00:00 Practice PF, 0.5 mL ([employer]) PF, 0.5 mL ([employer]) COVID-19 vaccine, COVID-19 vaccine, 2020-07-12 Completed [facility] vector-nr, rS-Ad26, vector-nr, rS-Ad26, 00:00:00 Practice PF, 0.5 mL (Brittney) PF, 0.5 mL (Brittney) COVID-19 vaccine, COVID-19 vaccine, 2020-07-12 Completed [facility] Family vector-nr, rS-Ad26, vector-nr, rS-Ad26, 00:00:00 Practice PF, 0.5 mL (Brittney) PF, 0.5 mL (Brittney) COVID-19 vaccine, COVID-19 vaccine, 2020-07-12 Completed [facility] Family vector-nr, rS-Ad26, vector-nr, rS-Ad26, 00:00:00 Practice PF, 0.5 mL (Brittney) PF, 0.5 mL (Brittney) Vital Signs Vital Name Observation Time Observation Value Comments Source BP Diastolic 2022-09-13 00:00:00 87 mm[Hg] [facility] Height 2022-09-13 00:00:00 66 [in_i] [facility] BMI (Body Mass 2022-09-13 00:00:00 52.6 kg/m2 [facility] BP Systolic 2022-09-13 00:00:00 138 mm[Hg] [facility] Body Weight 2022-09-13 00:00:00 326 [lb_av] [facility] BP Diastolic 2022-06-29 00:00:00 88 mm[Hg] [facility] Height 2022-06-29 00:00:00 66 [in_i] [facility] BMI (Body Mass 2022-06-29 00:00:00 52.9 kg/m2 [facility] BP Systolic 2022-06-29 00:00:00 145 mm[Hg] [facility] Body Weight 2022-06-29 00:00:00 328 [lb_av] [facility] BP Diastolic 2022-04-08 00:00:00 95 mm[Hg] [facility] Height 2022-04-08 00:00:00 66 [in_i] [facility] BMI (Body Mass 2022-04-08 00:00:00 52.7 kg/m2 [facility] BP Systolic 2022-04-08 00:00:00 148 mm[Hg] [facility] Body Weight 2022-04-08 00:00:00 326.4 [lb_av] [facility] BP Diastolic 2022-02-04 00:00:00 89 mm[Hg] [facility] Height 2022-02-04 00:00:00 66 [in_i] [facility] BMI (Body Mass 2022-02-04 00:00:00 52.5 kg/m2 [facility] BP Systolic 2022-02-04 00:00:00 136 mm[Hg] [facility] Body Weight 2022-02-04 00:00:00 325 [lb_av] [facility] BP Diastolic 2021-10-21 00:00:00 99 mm[Hg] [facility] Height 2021-10-21 00:00:00 66 [in_i] [facility] BMI (Body Mass 2021-10-21 00:00:00 53.3 kg/m2 [facility] BP Systolic 2021-10-21 00:00:00 146 mm[Hg] [facility] Body Weight 2021-10-21 00:00:00 330.4 [lb_av] [facility] BP Diastolic 2021-07-30 00:00:00 90 mm[Hg] [facility] Height 2021-07-30 00:00:00 66 [in_i] [facility] BMI (Body Mass 2021-07-30 00:00:00 53 kg/m2 [facility] BP Systolic 2021-07-30 00:00:00 154 mm[Hg] [facility] Body Weight 2021-07-30 00:00:00 328.4 [lb_av] [facility] BP Diastolic 2021-02-20 00:00:00 94 mm[Hg] [facility] Height 2021-02-20 00:00:00 66 [in_i] [facility] BMI (Body Mass 2021-02-20 00:00:00 50.8 kg/m2 [facility] BP Systolic 2021-02-20 00:00:00 145 mm[Hg] [facility] Body Weight 2021-02-20 00:00:00 315 [lb_av] [facility] BP Diastolic 2021-01-29 00:00:00 95 mm[Hg] [facility] Height 2021-01-29 00:00:00 66 [in_i] [facility] BMI (Body Mass 2021-01-29 00:00:00 51.2 kg/m2 [facility] BP Systolic 2021-01-29 00:00:00 134 mm[Hg] [facility] Body Weight 2021-01-29 00:00:00 317 [lb_av] [facility] BP Diastolic 2020-10-16 00:00:00 89 mm[Hg] [facility] Height 2020-10-16 00:00:00 66 [in_i] [facility] BMI (Body Mass 2020-10-16 00:00:00 51.3 kg/m2 [facility] BP Systolic 2020-10-16 00:00:00 131 mm[Hg] [facility] Body Weight 2020-10-16 00:00:00 318 [lb_av] [facility] BP Diastolic 2020-10-10 00:00:00 79 mm[Hg] [facility] Height 2020-10-10 00:00:00 66 [in_i] [facility] BMI (Body Mass 2020-10-10 00:00:00 51.7 kg/m2 [facility] BP Systolic 2020-10-10 00:00:00 145 mm[Hg] [facility] Body Weight 2020-10-10 00:00:00 320.6 [lb_av] [facility] BP Diastolic 2020-08-18 00:00:00 102 mm[Hg] [facility] Height 2020-08-18 00:00:00 66 [in_i] [facility] BMI (Body Mass 2020-08-18 00:00:00 51.8 kg/m2 [facility] BP Systolic 2020-08-18 00:00:00 178 mm[Hg] [facility] Body Weight 2020-08-18 00:00:00 321 [lb_av] [facility] BP Diastolic 2019-12-21 00:00:00 102 mm[Hg] [facility] Height 2019-12-21 00:00:00 66 [in_i] [facility] BMI (Body Mass 2019-12-21 00:00:00 52.6 kg/m2 [facility] BP Systolic 2019-12-21 00:00:00 153 mm[Hg] [facility] Body Weight 2019-12-21 00:00:00 326 [lb_av] [facility] Height 2019-09-12 00:00:00 66 [in_i] [facility] Height 2019-08-30 00:00:00 66 [in_i] [facility] Practice BP Diastolic 2019-05-15 00:00:00 87 mm[Hg] [facility] Height 2019-05-15 00:00:00 66 [in_i] [facility] BMI (Body Mass 2019-05-15 00:00:00 52.8 kg/m2 [facility] Index) Practice BP Systolic 2019-05-15 00:00:00 137 mm[Hg] [facility] Body Weight 2019-05-15 00:00:00 327 [lb_av] [facility] Procedures Procedure Date / Time Performing Clinician Source Performed US, kidney 2022-09-13 00:00:00 [facility] Marlon alissa Practice DUPLEX SCAN OF EXTREMITY 2022-04-08 00:00:00 [facility] VEINS INCLUDING RESPONSES TO Pra ctice COMPRESSION AND OTHER MANEUVERS; UNILATERAL OR LIMITED STUDY MAMMO, screening, digital, 2021-10-21 00:00:00 [facility] Practice X-RAY OF CHEST 2 VIEW 2021-07-30 00:00:00 [facility] MAMMO, screening, digital, 2021-02-02 00:00:00 [facility] Practice Kidney Excision 2020-12-19 00:00:00 [facility] alissa Practice MAMMO, screening, digital, 2019-12-21 00:00:00 [facility] Practice electrocardiogram 2019-12-21 00:00:00 [facility] Rolando julien [facility] X-RAY OF CHEST 2 VIEW 2019-12-21 00:00:00 [facility] MAMMO, screening, digital, 2019-05-15 00:00:00 [facility] Practice Cholecystectomy (Gall 2011-04-04 00:00:00 [facility] Bladder Removal) Practice Hysterectomy (Partial) 1991-04-04 00:00:00 Colón ge [facility] Knee Surgery 1990-04-04 [facility] Plan of Care Planned Activity Planned Date Details Comments Source Diagnostic Test 2022-09-13 urinalysis, [facility] Marlon alissa Pending 00:00:00 dipstick [code = Practice urinalysis, dipstick] Diagnostic Test 2022-09-13 culture, urine [facility] wily Pending 00:00:00 [code = culture, Practice urine] Encounters Start End Encounter Admission Attending Care Care Encounter Source Date/Time Date/Time Type Type Clinicians Facility Department ID 2022-09-13 2022-09-13 Outpatient Teer_J VFP VFP [id number] [facility] 00:00:00 00:00:00 [id number] Family Practic e 2022-09-13 2022-09-13 Luisa L VFP [place] - [id number] [facility] 00:00:00 00:00:00 Florecita, [facility] ly CASING FLUID TENDER: [address] [place] [phone] , Ph. 2022-08-21 2022-08-21 Outpatient Teer_J VFP VFP [id number] [facility] 00:00:00 00:00:00 [id number] Family Practic e 2022-06-29 2022-06-29 Outpatient Teer_J VFP VFP [id number] [facility] 00:00:00 00:00:00 [id number] Family Practic e 2022-06-29 2022-06-29 Luisa L VFP [place] - [id number] [facility] 00:00:00 00:00:00 Florecita [facility] ly CASING FLUID TENDER: [address] [facility] [address], [place] [phone] , Ph. 2022-06-08 2022-06-08 Outpatient Teer_J VFP VFP [id number] [facility] 00:00:00 00:00:00 [id number] Family Practic e 2022-06-08 2022-06-08 Outpatient Teer_J VFP VFP [id number] [facility] 00:00:00 00:00:00 [id number] Family Practic e 2022-04-28 2022-04-28 Outpatient Teer_J VFP VFP [id number] [facility] 00:00:00 00:00:00 [id number] Family Practic e 2022-04-22 2022-04-22 Outpatient EL Tamy, HCACL FLAQUITA [id number] [facility] 12:00:00 12:00:00 Bessy [address] [facility] 2022-04-09 2022-04-09 Outpatient Teer_J VFP VFP [id number] [facility] 00:00:00 00:00:00 [id number] Family Practic e 2022-04-09 2022-04-09 Luisa L VFP [place] - [id number] [facility] 00:00:00 00:00:00 Florecita [facility] ly CASING FLUID TENDER: [address] [facility] [address] [place] [phone] , Ph. 2022-04-08 2022-04-08 Outpatient Teer_J VFP VFP [id number] [facility] 00:00:00 00:00:00 [id number] Family Practic e 2022-04-08 2022-04-08 Outpatient VFP VFP [id number] [facility] 00:00:00 00:00:00 [id number] Family Practic e 2022-04-08 2022-04-08 Outpatient VFP VFP [id number] [facility] 00:00:00 00:00:00 [id number] Family Practic e 2022-04-08 2022-04-08 Outpatient VFP VFP [id number] [facility] 00:00:00 00:00:00 [id number] Family Practic e 2022-04-08 2022-04-08 Outpatient VFP VFP [id number] [facility] 00:00:00 00:00:00 [id number] Family Practic e 2022-04-08 2022-04-08 Outpatient VFP VFP [id number] [facility] 00:00:00 00:00:00 [id number] Family Practic e 2022-04-08 2022-04-08 Luisa L VFP [place] - [id number] [facility] 00:00:00 00:00:00 [facility]: [address] [facility] [address], [place] [phone] , Ph. 2022-03-24 2022-03-24 Outpatient Teer_J VFP VFP [id number] [facility] 00:00:00 00:00:00 [id number] Family Practic e 2022-03-05 2022-03-05 Outpatient Teer_J VFP VFP [id number] [facility] 00:00:00 00:00:00 [id number] Family Practic e 2022-03-05 2022-03-05 Outpatient VFP VFP [id number] [facility] 00:00:00 00:00:00 [id number] Family Practic e 2022-02-04 2022-02-04 Outpatient Teer_J VFP VFP [id number] [facility] 00:00:00 00:00:00 [id number] Family Practic e 2022-02-04 2022-02-04 Bessy VFP [place] - [id number] [facility] 00:00:00 00:00:00 [facility] Family Tamy MD: Medical - Prac tic [address] [place] - [place] [address] [facility] [phone] , Ph. 2022-01-14 2022-01-14 Outpatient Teer_J VFP VFP [id number] [facility] 00:00:00 00:00:00 [id number] Family Practic e 2022-01-04 2022-01-04 Outpatient VFP VFP [id number] 202 [facility] 00:00:00 00:00:00 [id number] Family Practic e 2021-11-30 2021-11-30 Outpatient Teer_J VFP VFP [id number] [facility] 00:00:00 00:00:00 [id number] Family Practic e 2021-10-21 2021-10-21 Luisa L Teer_J VFP [place] - [id number] [facility] 00:00:00 00:00:00 Florecita [facility] Fami ly CASING FLUID TENDER: [address], [facility] [place] [address] , Ph. 2021-08-12 2021-08-12 Outpatient Teer_J VFP VFP [id number] [facility] 09:16:00 09:16:00 [id number] Family Practic e 2021-07-30 2021-07-30 Luisa L Teer_J VFP [place] - [id number] [facility] 00:00:00 00:00:00 Juani Bernabe Fami ly CASING FLUID TENDER: [address], [place] [address] , Ph. 2021-04-01 2021-04-01 Outpatient EL Tamy, HCACL FLAQUITA [id number] [facility] 12:00:00 12:00:00 Bessy [address] [facility] 2021-03-03 2021-03-03 Outpatient Teer_J VFP VFP [id number] [facility] 12:39:00 12:39:00 [id number] Family Practic e 2021-02-20 2021-02-20 Bessy Teer_J VFP [place] - [id number] [facility] 00:00:00 00:00:00 [facility] [id number] Family Tamy MD: Medical - Prac tic [address], [place] [address] , Ph. 2021-02-12 2021-02-12 Outpatient Teer_J VFP VFP [id number]- [facility] [facility] 01[facility]00 01:06:00 [id number] Family Practic e 2021-02-06 2021-02-06 Outpatient Teer_J VFP VFP [id number] [facility] 04:11:00 04:11:00 [id number] Family Practic e 2021-01-29 2021-01-29 Bessy Teer_J VFP [place] - [id number] [facility] 00:00:00 00:00:00 [facility] [id number] Family Tamy MD: Medical - Prac tic [address], [place] [address] , Ph. 2021-01-22 2021-01-22 Outpatient Teer_J VFP VFP [id number] [facility] 06:12:00 06:12:00 [id number] Family Practic e 2020-12-15 2020-12-15 Outpatient Teer_J VFP VFP [id number] [facility] 03:21:00 03:21:00 [id number] Family Practic e 2020-12-02 2020-12-02 Outpatient Teer_J VFP VFP [id number] [facility] 01:12:00 01:12:00 [id number] Family Practic e 2020-10-25 2020-10-25 Outpatient Teer_J VFP VFP [id number] [facility] 02:31:00 02:31:00 [id number] Family Practic e 2020-10-24 2020-10-24 Outpatient Teer_J VFP VFP [id number] [facility] 01:04:00 01:04:00 [id number] Family Practic e 2020-10-16 2020-10-16 Bessy Teer_J VFP [place] - [id number] [facility] 00:00:00 00:00:00 [place] [id number] Family Tamy MD: Medical - Prac tic [address], [place] [address] , Ph. 2020-10-13 2020-10-13 Outpatient Teer_J VFP VFP [id number] [facility] 02:49:00 02:49:00 [id number] Family Practic e 2020-10-10 2020-10-10 Bessy Teer_J VFP [place] - [id number] [facility] 00:00:00 00:00:00 [place] [id number] Family Tamy MD: Medical - Prac tic [address], [place] [address] , Ph. 2020-09-30 2020-09-30 Outpatient Teer_J VFP VFP [id number] [facility] 04:43:00 04:43:00 [id number] Family Practic e 2020-09-20 2020-09-20 Outpatient Teer_J VFP VFP [id number] [facility] 03:19:00 03:19:00 [id number] Family Practic e 2020-09-10 2020-09-10 Outpatient Teer_J VFP VFP [id number] [facility] 10:14:00 10:14:00 [id number] Family Practic e 2020-08-22 2020-08-22 Outpatient Teer_J VFP VFP [id number] [facility] 11:52:00 11:52:00 [id number] Family Practic e 2020-08-18 2020-08-18 Bessy Teer_J VFP [place] - [id number] [facility] 00:00:00 00:00:00 [facility] [id number] Family Tamy MD: Medical - Prac tic [address], [place] [address] , Ph. 2020-05-28 2020-05-28 Outpatient Teer_J VFP VFP [id number] [facility] 04:29:00 04:29:00 [id number] Family Practic e 2020-02-17 2020-02-17 Outpatient Teer_J VFP VFP [id number] [facility] 01:02:00 01:02:00 [id number] Family Practic e 2020-01-13 2020-01-13 Outpatient Teer_J VFP VFP [id number] [facility] 01:02:00 01:02:00 [id number] Family Practic e 2019-12-27 2019-12-27 Outpatient Teer_J VFP VFP [id number] [facility] 12:48:00 12:48:00 [id number] Family Practic e 2019-12-26 2019-12-26 Outpatient Teer_J VFP VFP [id number] [facility] 04:45:00 04:45:00 [id number] Family Practic e 2019-12-21 2019-12-21 Bessy Teer_J VFP [place] - [id number] [facility] 00:00:00 00:00:00 [facility] [id number] Family Tamy MD: Medical - Prac tic [address], [place] [address] , Ph. 2019-12-15 2019-12-15 Outpatient Teer_J VFP VFP [id number] [facility] 05:23:00 05:23:00 [id number] Family Practic e 2019-09-29 2019-09-29 Outpatient Teer_J VFP VFP [id number] [facility] 12:40:00 12:40:00 [id number] Family Practic e 2019-09-16 2019-09-16 Outpatient Teer_J VFP VFP [id number] [facility] 09:17:00 09:17:00 [id number] Family Practic e 2019-09-13 2019-09-13 Outpatient Teer_J VFP VFP [id number] [facility] 04:13:00 04:13:00 [id number] Family Practic e 2019-09-12 2019-09-12 Bessy Teer_J VFP [place] [id number] [facility] 00:00:00 00:00:00 [facility] [id number] Family Tamy MD: Medical - Prac tic [address], [place] [address] , Ph. 2019-09-04 2019-09-04 Outpatient Teer_J VFP [facility] [id number] 07:14:00 07:14:00 [id number] Family Practic e 2019-08-30 2019-08-30 Shivjit Teer_J VFP [facility] [id number] 00:00:00 00:00:00 [facility] [id number] Family Mikayla MD: Medical - Prac tic [address], [place] [address] , Ph. 2019-05-22 2019-05-22 Outpatient Teer_J VFP VFP [id number] 03:48:00 03:48:00 [id number] Family Practic e 2019-05-15 2019-05-15 Bessy Teer_J VFP [place] [id number] [facility] 00:00:00 00:00:00 [facility] [id number] Family Tamy MD: Medical - Prac tic [address], [place] [address] , Ph. 2019-05-09 2019-05-09 Outpatient Teer_J VFP VFP [id number] [facility] 12:58:00 12:58:00 [id number] Family Practic e 2019-05-05 2019-05-05 Outpatient Teer_J VFP VFP [id number] [facility] 04:04:00 04:04:00 [id number] Family Practic e 2019-05-04 2019-05-04 Outpatient Teer_J VFP VFP [id number] [facility] 05:33:00 05:33:00 [id number] Family Practic e 2019-02-07 2019-02-07 Outpatient Teer_J VFP VFP [id number] [facility] 08:23:00 08:23:00 [id number] Family Practic e Results Test Description Test Time Test Comments Results Result Comments Source Bacteria identified in Urine by Culture 2022-07-02 00:00:00 Test Item Value Reference Range Interpretation Comme nts urine culture, routine (test code = urine culture, routine) final r eport A result 1 (test code = result 1) escherichia coli A antimicrobial susceptibility (test code = antimicrobial comment susceptibility) [facility] - [id number] 13:27:32 Test Item Value Reference Range Interpretation Comments Interpretation UA test Automated performed using: (test device/analyzer code = Interpretation UA (46168,QW) test performed using:) Interpretation Color Yellow (test code = Interpretation Color) Interpretation Clarity Cloudy (test code = Interpretation Clarity) Interpretation Glucose Negative (mg/dL) (test code = Interpretation Glucose (mg/dL)) Interpretation Bilirubin Negative (test code = Interpretation Bilirubin) Interpretation Ketone Negative (mg/dL) (test code = Interpretation Ketone (mg/dL)) Interpretation Specific (Greater than or [place] (test code = equal to) >= 1.030 Interpretation Specific [place]) Interpretation Occult Negative Blood (test code = Interpretation Occult Blood) Interpretation pH (test 5 code = Interpretation pH) Interpretation Protein Negative (test code = Interpretation Protein) Interpretation 0.2 Urobilinogen (test code = Interpretation Urobilinogen) Interpretation Nitrites Positive (test code = Interpretation Nitrites) Interpretation Leukocytes Small (test code = Interpretation Leukocytes) [facility]dipstick) panel - [id number] 09:18:43 Test Item Value Reference Range Interpretation Comments Color Color (test code = Color yellow Color) Color Appearance (test code = Color cloudy Appearance) Color Glucose (test code = Color negative Glucose) Color Bilirubin (test code = Color negative Bilirubin) Color Ketones (test code = Color negative Ketones) Color Specific [place] (test code = 1.025 Color Specific [place]) Color Blood (test code = Color negative Blood) Color PH (test code = Color PH) 5.5 Color Protein (test code = Color negative Protein) Color Urobilinogen (test code = 0.2 Color Urobilinogen) Color Nitrites (test code = Color positive Nitrites) Color Leukocytes (test code = Color negative Leukocytes) [facility] 1999 [facility] - Serum or Plasma 2021-02-13 00:00:00 Test Item Value Reference Range Interpretation Comments ALT (test code = ALT) 53 U/L 0-55 AST (test code = AST) 39 U/L 5-34 H BUN (test code = BUN) 15.6 mg/dL 9.8-25.0 alk phos (test code = alk 116 unit/L 40-150 phos) glucose (test code = 114 mg/dL 70-99 H glucose) albumin (test code = 3.7 g/dL 3.4-5.1 albumin) creatinine (test code = 1.09 mg/dL 0.57-1.11 creatinine) eGFR non- 52 mL/min/1.73m2 A (test code = eGFR non-) total bilirubin (test code = 0.5 mg/dL 0.2-1.2 total bilirubin) eGFR - >60 (test code = eGFR - ) sodium (test code = sodium) 144 mEq/L 135-145 potassium (test code = 5.0 mEq/L 3.5-5.3 potassium) chloride (test code = 109 mmol/L 98-110 chloride) total protein (test code = 7.4 g/dL 6.1-8.2 total protein) calcium (test code = 9.6 mg/dL 8.4-10.4 calcium) CO2 (test code = CO2) 24.7 mmol/L 20.0-32.0 anion gap (test code = anion 10 calc gap) [facility] 1995 panel - Serum or [id number] 00:00:00 Test Item Value Reference Range Interpretation Comments HDL (test code = HDL) 63 mg/dL triglyceride (test code = 117 mg/dL <150 triglyceride) VLDL (calculated) (test code = VLDL 23 mg/dL (calculated)) cholesterol/HDL ratio (test code = 3.5 mg/dL cholesterol/HDL ratio) non-HDL cholesterol (calculated) 158 mg/dL <160 (test code = non-HDL cholesterol (calculated)) cholesterol (test code = 221 mg/dL <200 H cholesterol) Cholesterol in LDL [Mass/volume] in 135 mg/dL <130 H Serum or Plasma (test code = 2089-1) [facility] PracticeDrugs identified in Urine by Screen [id number] 06:58:00 Test Item Value Reference Range Interpretation Comments amphetamines (test code negative <500 = amphetamines) barbiturates (test code negative <300 = barbiturates) benzodiazepines (test negative <100 code = benzodiazepines) cocaine metabolite negative <150 (test code = cocaine metabolite) methadone metabolite negative <100 (test code = methadone metabolite) opiates (test code = positive <100 A opiates) oxycodone (test code = negative <100 oxycodone) phencyclidine (test negative <25 code = phencyclidine) creatinine (test code = 141.4 mg/dL See_Comment [Au tomated creatinine) message] The sy stem which generated this result transmitted reference range : > or = 20.0. The reference range was not used to interpret this result as normal/abnormal . pH (test code = pH) 5.8 4.5-9.0 oxidant (test code = negative <200 oxidant) [facility] Practicedrug monitoring [id number] 06:58:00Notes and CommentsVillage [facility] HospitalCom[facility] 2000 panel - Serum or [id number] 08:14:00 Test Item Value Reference Range Interpretation Comments ALT (test code = ALT) 72 U/L 0-55 H AST (test code = AST) 48 U/L 5-34 H BUN (test code = BUN) 14.5 mg/dL 9.8-25.0 alk phos (test code = alk phos) 127 unit/L 40-150 glucose (test code = glucose) 100 mg/dL 70-99 H albumin (test code = albumin) 3.8 g/dL 3.4-5.1 creatinine (test code = 0.93 mg/dL 0.57-1.11 creatinine) eGFR non- (test >60 code = eGFR non-) total bilirubin (test code = 0.7 mg/dL 0.2-1.2 total bilirubin) eGFR - (test >60 code = eGFR - ) sodium (test code = sodium) 142 mEq/L 135-145 potassium (test code = potassium) 4.2 mEq/L 3.5-5.3 chloride (test code = chloride) 106 mmol/L 98-110 total protein (test code = total 7.2 g/dL 6.1-8.2 protein) calcium (test code = calcium) 9.6 mg/dL 8.4-10.4 CO2 (test code = CO2) 27.4 mmol/L 20.0-32.0 anion gap (test code = anion gap) 9 calc [facility] - Serum or [id number] 08:14:00 Test Item Value Reference Range Interpretation Comments HDL (test code = HDL) 53 mg/dL triglyceride (test code = 195 mg/dL <150 H triglyceride) VLDL (calculated) (test code = VLDL 39 mg/dL (calculated)) cholesterol/HDL ratio (test code = 3.9 mg/dL cholesterol/HDL ratio) non-HDL cholesterol (calculated) 152 mg/dL <160 (test code = non-HDL cholesterol (calculated)) cholesterol (test code = 205 mg/dL <200 H cholesterol) Cholesterol in LDL [Mass/volume] in 113 mg/dL <130 Serum or Plasma (test code = 2089-1) [facility] HospitalJvffquie03-Ezhlgjlbanmift D3+25-Hydroxyvitamin D2 [Mass/volume] in Serum or [id number] 08:14:00 Test Item Value Reference Range Interpretation Comments vitamin D 25OH (test code = 23.7 NG/mL 30.0-96.0 L vitamin D 25OH) [facility] HospitalHemoglobin A1c/Hemoglobin.total in [id number] 17:16:00 Test Item Value Reference Range Interpretation Comments Hemoglobin A1c/Hemoglobin.total in 5.4 % 1.0-5.7 Blood (test code = 4548-4) average blood glucose (calculation) 108 mg/dL (test code = average blood glucose (calculation)) [facility] HospitalEK [id number] 15:57:00 Test Item Value Reference Range Interpretation Comments Rate & Rhythm (test code = Rate & NSR Rhythm) QRS (test code = QRS) TX Interval (test code = TX Interval) 166 QRS Duration (test code = QRS Duration) 92 QT Interval (test code = QT Interval) 364 [facility]
[2022-12-15 03:03] LABS: Absolute Lymphocytes (CBC) 0.3 K/uL (0.7-4.9); Hematocrit 42.6 % (36.0-45.0); Lymphocytes % 3.5 % (15.3-44.8); MCV 88.9 fL (80-100); MPV 8.3 fL (7.6-11.3); Platelets 182 thou/uL (152-406); RBC Red Blood Cell Count 4.79 M/uL (3.86-4.86)
[2022-12-15] MEDS ORDERED: MORPHINE 4 MG/ML SYR ONE (03:05)
[2022-12-15] MEDS ORDERED: CEFTRIAXONE 1000 MG/VIAL ONE (03:06)
[2022-12-15] MEDS ORDERED: DIAZEPAM 10 MG/2 ML INJ SYRINGE ONE (03:06)
[2022-12-15] MEDS ORDERED: KETOROLAC 30 MG/ML INJ ONE (03:06)
[2022-12-15] MEDS ORDERED: ONDANSETRON 4 MG/2 ML VIAL ONE (03:06)
[2022-12-15] MEDS ORDERED: NA CHLORIDE 0.9% 1,000 ML ONE (03:06)
--- NOTE | 2022-12-15 03:08 | ER ---
Nurse's Notes [facility] Name: Vasyl Singh Age: 56 yrs Sex: Female : 1965 Arrival Date: 12/15/2022 Time: 02:17 Bed 16 Private MD: Diagnosis: Hydronephrosis with renal and ureteral calculous obstruction;Left ureteral calculus ;Pyelonephritis acute Presentation: 12/15 02:32 Chief complaint: Patient states: was diagnosis with 7mm kidney stone on the left side. as6 vomiting and fever and increased pain started today. Coronavirus screen: At this time, the client does not indicate any symptoms associated with coronavirus-19. Ebola Screen: No symptoms or risks identified at this time. Initial Sepsis Screen: Does the patient meet any 2 criteria? No. Patient's initial sepsis screen is negative. Does the patient have a suspected source of infection? No. Patient's initial sepsis screen is negative. Risk Assessment: Do you want to hurt yourself or someone else? Patient reports no desire to harm self or others. Onset of symptoms was December 14, 2022. 02:32 Acuity: BRAN 3 as6 02:32 Method Of Arrival: Wheelchair as6 Triage Assessment: 02:35 General: Appears distressed, uncomfortable, obese, Behavior is cooperative, appropriate bp for age, agitated, anxious. Pain: Complains of pain in left mid back. GI: Reports nausea. : Reports pain in left flank(s), in lower back. Historical: - Allergies: 02:32 No Known Allergies; as6 - PMHx: 02:32 Asthma; Anxiety; as6 - PSHx: 02:32 Cholecystectomy; hysterectomy; knee surgery; as6 - Immunization history:: Client reports receiving the 2nd dose of the Covid vaccine, pfizer. - Social history:: Smoking status: Patient denies any tobacco usage or history of. Screenin:35 [facility] ED Fall Risk Assessment (Adult) History of falling in the last 3 months, bp including since admission No falls in past 3 months (0 pts). Abuse screen: Denies threats or abuse. Denies injuries from another. Nutritional screening: No deficits noted. Tuberculosis screening: No symptoms or risk factors identified. Assessment: 02:35 General: SEE TRIAGE NOTE. bp 05:25 Reassessment: Patient appears in no apparent distress at this time. Patient and/or jb4 family updated on plan of care and expected duration. Pain level reassessed. Patient is alert, oriented x 3, equal unlabored respirations, skin warm/dry/pink. 07:15 Reassessment: Patient and/or family updated on plan of care and expected duration. Pain db level reassessed. Patient is alert, oriented x 3, equal unlabored respirations, skin warm/dry/pink. General: Appears uncomfortable, Behavior is cooperative. Neuro: Level of Consciousness is awake, alert, obeys commands, Oriented to person, place, time, situation. Respiratory: Airway is patent Respiratory effort is even, unlabored, Respiratory pattern is regular, symmetrical. 07:30 GI: Bowel sounds present X 4 quads. Abd is soft. db 07:38 Reassessment: NOTIFIED PROVIDER OF PATIENT TEMP 100.5. db 08:09 Reassessment: CALLED TO GIVE REPORT TO [facility] RM 1260. NURSE STATES ROOM IS NOT CLEAN AND db TO CALL BACK IN 30 MINUTES. 08:30 Reassessment: Patient appears in no apparent distress at this time. Patient and/or db family updated on plan of care and expected duration. Pain level reassessed. Patient is alert, oriented x 3, equal unlabored respirations, skin warm/dry/pink. PT AMBULATORY TO RESTROOM. 08:42 Reassessment: CALLED TO GIVE REPORT TO [facility] RM 1260 RN. NURSE STATES IS BUSY db AND ASKED FOR ME TO CALL BACK TO GIVE REPORT. 08:50 Reassessment: CALL CENTER CALLED AND STATES TO GIVE FLOOR A CALL FOR REPORT. CALLED db RECEIVING FACILITY TO GIVE REPORT. NO ANSWER. 08:50 Reassessment: CALLED CALL CENTER TO NOTIFY. CALL CENTER ATTEMPTING TO GET A HOLD OF db UNIT AND NURSE FOR REPORT. 09:00 Reassessment: REPORT GIVEN TO SAMUEL ESCUDERO AT [facility] FOR ROOM 1260. db 09:39 Reassessment: Patient appears in no apparent distress at this time. Patient and/or db family updated on plan of care and expected duration. Pain level reassessed. EMS IS HERE FOR PT TRANSPORT. PT REQUESTS PAIN MEDICATION PRIOR TO TRANSFER. NOTIFIED PROVIDER RAJESH. NEW ORDER FOR DILAUDID 1 MG IVP RECEIVED AND GIVEN. Vital Signs: 02:31 BP 156 / 75; Pulse 135; Resp 25 S; Temp 99(O); Pulse Ox 97% on R/A; Weight 146.96 kg as6 (R); Height 5 ft. 7 in. (R); Pain 10/10; 03:00 BP 103 / 78; Pulse 122; Resp 15; Pulse Ox 95% ; bp 05:00 BP 154 / 84; Pulse 113; Resp 16; Pulse Ox 94% on 2 lpm NC; jb4 06:00 BP 142 / 59; Pulse 114; Resp 16; Pulse Ox 96% on 2 lpm NC; jb4 07:32 BP 142 / 83; Pulse 122; Resp 24; Temp 100.5(O); Pulse Ox 98% on 2 lpm NC; db 08:43 BP 124 / 77; Pulse 118; Resp 24; Temp 99.5; Pulse Ox 90% on R/A; db 02:31 Body Mass Index 50.75 (146.96 kg, 170.18 cm) as6 02:31 Pain Scale: Adult as6 08:43 PATIENT 90% ON ROOMAIR WHEN RESTING. PLACED ON 2L O2 AND OXYGEN INCREASED TO 97% db Vitals: 07:32 Cardiac Rhythm Assessment Sinus tach. db ED Course: 02:20 Patient arrived in ED. jj6 02:22 Mary Hough FNP-C is [facility]. snw 02:22 Mayo Samuel MD is Attending Physician. snw 02:31 Ezra Lopez, SAMUEL is Primary Nurse. bp 02:31 Arm band placed on. as6 02:35 Patient has correct armband on for positive identification. Bed in low position. Call bp light in reach. Side rails up X2. Adult w/ patient. 02:39 Triage completed. as6 02:52 CBC with Diff Sent. jb4 02:52 CMP Sent. jb4 04:29 Inserted saline lock: 22 gauge in left forearm, using aseptic technique. Blood bp collected. 06:22 CT Abd/Pelvis - Without Contrast In Process Unspecified. EDMS 07:15 Client placed on continuous cardiac and pulse oximetry monitoring. NIBP monitoring db applied. 09:40 Provided Education on: TRANSFERRED. Warm blanket given. db 09:40 No provider procedures requiring assistance completed. Patient transferred, IV remains db in place. Administered Medications: 02:50 Drug: NS 0.9% IV 1000 ml Route: IV; Rate: 1 bolus; Site: left antecubital; bp 09:45 Follow up: IV Status: Infusion continued upon transfer db 02:50 Drug: Ketorolac IVP 15 mg Route: IVP; Site: left antecubital; bp 03:10 Follow up: Response: No adverse reaction; Marked relief of symptoms jb4 02:50 Drug: Diazepam IVP 10 mg Route: IVP; Site: left antecubital; bp 03:10 Follow up: Response: No adverse reaction; Marked relief of symptoms; Pain is decreased jb4 02:50 Drug: Rocephin IV 1 grams Route: IV; Rate: calculated rate; Site: left antecubital; bp 03:00 Follow up: Response: No adverse reaction; IV Status: Completed infusion jb4 02:50 Drug: morphine IVP or IV 4 mg Route: IVP; Infused Over: 4 mins; Site: left antecubital; bp 03:10 Follow up: Response: No adverse reaction; Marked relief of symptoms; Pain is decreased jb4 05:02 CANCELLED (Duplicate Order): Albumin IVPB 25 grams 100 ml IVPB once; (Note: Albumin 25% sp4 concentration) 05:06 Drug: NS 0.9% IV 1000 ml Route: IV; Rate: 1 bolus; Site: left femoral; jb4 09:44 Follow up: Response: No adverse reaction; IV Status: Completed infusion; IV Intake: db 1000ml 05:15 Drug: HYDROmorphone IVP 1 mg Route: IVP; Site: left forearm; jb4 05:30 Follow up: Response: No adverse reaction; Marked relief of symptoms jb4 05:22 Drug: metroNIDAZOLE IVPB 500 mg Volume: 100 ml; Route: IVPB; Rate: 200 ml/hr; Infused jb4 Over: 30 mins; Site: left forearm; 05:52 Follow up: Response: No adverse reaction; IV Status: Completed infusion; IV Intake: jb4 100ml 06:48 Drug: NS 0.9% IV 1000 ml Route: IV; Rate: 1 bolus; Site: left forearm; jb4 09:44 Follow up: Response: No adverse reaction; IV Status: Completed infusion; IV Intake: db 1000ml 07:42 Drug: Acetaminophen PO 1000 mg Route: PO; db 09:44 Follow up: Response: No adverse reaction db 09:36 Drug: HYDROmorphone IVP 1 mg Route: IVP; Site: left forearm; db 09:44 Follow up: Response: No adverse reaction db Medication: 09:40 VIS not applicable for this client. db Intake: 05:52 IV: 100ml; Total: 100ml. jb4 09:44 IV: 1000ml; Total: 1100ml. db 09:44 IV: 1000ml; Total: 2100ml. db Outcome: 03:08 ER care complete, transfer ordered by . snkatty 09:40 Transferred by ground EMS to [facility], Transfer form completed. db 09:40 Condition: stable 09:40 Instructed on the need for transfer. 09:46 Patient left the ED. db Signatures: Dispatcher [employer] EDMS Mary Hough, YONY-C [employer]-[address], RN RN jb4 Ezra Lopez RN RN Lisset Calderón Ashby, RN RN as6 Kaye Hdez RN RN Mayo Blanco MD sp4 Corrections: (The following items were deleted from the chart) 09:44 08:43 BP 124 / 77; Pulse 118bpm; Resp 24bpm; Pulse Ox 90% RA; Temp 99.5F; db db
--- NOTE | 2022-12-15 03:08 | EDPHYS ---
Physician Documentation [facility] Name: Vasyl Singh Age: 56 yrs Sex: Female : 1965 Arrival Date: 12/15/2022 Time: 02:17 Bed 16 Private MD: ED Physician Mayo Samuel HPI: 12/15 02:34 This 56 yrs old Female presents to ER via Unassigned with complaints of Possible Kidney snw Stone. 02:34 The patient complains of pain in the left mid back. The pain does not radiate. Onset: snw The symptoms/episode began/occurred 3 day(s) ago, and became worse today, and became persistent. Associated signs and symptoms: Pertinent positives: fever, nausea, vomiting. Severity of pain: At its worst the pain was moderate severe. The patient has experienced similar episodes in the past. The patient has been recently seen by a physician: The patient has been recently seen at the [facility] Emergency [facility], for similar complaints labs were performed, CT scan was performed, was given IV fluids, given IM/IV antibiotics, was given a prescription for pain medications, was given a prescription for an antiemetic, the patient was told to return for a recheck, 12/13/22. Historical: - Allergies: 02:32 No Known Allergies; as6 - PMHx: 02:32 Asthma; Anxiety; as6 - PSHx: 02:32 Cholecystectomy; hysterectomy; knee surgery; as6 - Immunization history:: Client reports receiving the 2nd dose of the Covid vaccine, pfizer. - Social history:: Smoking status: Patient denies any tobacco usage or history of. ROS: 02:34 Eyes: Negative for injury, pain, redness, and discharge, ENT: Negative for injury, snw pain, and discharge, Neck: Negative for injury, pain, and swelling, Cardiovascular: Negative for chest pain, palpitations, and edema, Respiratory: Negative for shortness of breath, cough, wheezing, and pleuritic chest pain. 02:34 : Negative for injury, bleeding, discharge, and swelling, MS/Extremity: Negative for injury and deformity, Skin: Negative for injury, rash, and discoloration, Neuro: Negative for headache, weakness, numbness, tingling, and seizure. 02:34 Constitutional: Positive for body aches, fever, poor PO intake. 02:34 Abdomen/GI: Positive for nausea and vomiting. 02:34 Back: Positive for flank pain, on the left. 02:34 Psych: Positive for anxiety. Exam: 02:34 Head/Face: Normocephalic, atraumatic. Eyes: Pupils equal round and reactive to light, snw extra-ocular motions intact. Lids and lashes normal. Conjunctiva and sclera are non-icteric and not injected. Cornea within normal limits. Periorbital areas with no swelling, redness, or edema. ENT: Nares patent. No nasal discharge, no septal abnormalities noted. Tympanic membranes are normal and external auditory canals are clear. Oropharynx with no redness, swelling, or masses, exudates, or evidence of obstruction, uvula midline. Mucous membranes moist. Neck: Trachea midline, no thyromegaly or masses palpated, and no cervical lymphadenopathy. Supple, full range of motion without nuchal rigidity, or vertebral point tenderness. No Meningismus. Chest/axilla: Normal chest wall appearance and motion. Nontender with no deformity. No lesions are appreciated. 02:34 Abdomen/GI: Soft, non-tender, with normal bowel sounds. No distension or tympany. No guarding or rebound. No evidence of tenderness throughout. Skin: Warm, dry with normal turgor. Normal color with no rashes, no lesions, and no evidence of cellulitis. MS/ Extremity: Pulses equal, no cyanosis. Neurovascular intact. Full, normal range of motion. Neuro: Awake and alert, GCS 15, oriented to person, place, time, and situation. Cranial nerves II-XII grossly intact. Motor strength 5/5 in all extremities. Sensory grossly intact. Cerebellar exam normal. Normal gait. 02:34 Constitutional: The patient appears awake, agitated, obese, uncomfortable. 02:34 Cardiovascular: Rate: tachycardic, Rhythm: regular, Heart sounds: normal. 02:34 Respiratory: the patient does not display signs of respiratory distress, Respirations: shallow respirations, tachypnea, encouraged to slow respirations. 02:34 Back: pain, that is moderate, CVA tenderness, is noted on the left. 02:34 Psych: Behavior/mood is anxious, Affect is animated, Oriented to person, place, time. Vital Signs: 02:31 BP 156 / 75; Pulse 135; Resp 25 S; Temp 99(O); Pulse Ox 97% on R/A; Weight 146.96 kg as6 (R); Height 5 ft. 7 in. (R); Pain 10/10; 03:00 BP 103 / 78; Pulse 122; Resp 15; Pulse Ox 95% ; bp 05:00 BP 154 / 84; Pulse 113; Resp 16; Pulse Ox 94% on 2 lpm NC; jb4 06:00 BP 142 / 59; Pulse 114; Resp 16; Pulse Ox 96% on 2 lpm NC; jb4 07:32 BP 142 / 83; Pulse 122; Resp 24; Temp 100.5(O); Pulse Ox 98% on 2 lpm NC; db 08:43 BP 124 / 77; Pulse 118; Resp 24; Temp 99.5; Pulse Ox 90% on R/A; db 02:31 Body Mass Index 50.75 (146.96 kg, 170.18 cm) as6 02:31 Pain Scale: Adult as6 08:43 PATIENT 90% ON ROOMAIR WHEN RESTING. PLACED ON 2L O2 AND OXYGEN INCREASED TO 97% db MDM: 02:30 Patient medically screened. snw 02:37 Differential diagnosis: nephrolithiasis, pyelonephritis, UTI. Data reviewed: vital snw signs, nurses notes, lab test result(s). Consideration of Admission/Observation need to transfer to [facility], no Urology coverage until Jan 02. I considered the following discharge prescriptions or medication management in the emergency department Medications were administered in the Emergency Department. See MAR. Historians other than the Patient: Spouse/Significant Other: . Counseling: I had a detailed discussion with the patient and/or guardian regarding the historical points, exam findings, and any diagnostic results supporting the discharge/admit diagnosis, the need to transfer to another facility. Special discussion: Based on the patient's Hx, exam, and Dx evaluation, there is no indication for emergent surgery or inpatient Tx. It is understood by the patient/guardian that if the Sx's persist or worsen they need to return immediately for re-evaluation. I have referred the patient to see his PCP for further evaluation of high blood pressure. Based on the history and exam findings, there is no indication for further emergent testing or inpatient evaluation. I discussed with the patient/guardian the need to see the urologist for further evaluation of the symptoms. 03:05 Management of patient was discussed with the following: Touch Up Edger: Dr. Pearson, Urologist snw at [facility], agrees to consult at His facility . 03:40 Management of patient was discussed with the following: Hospitalist: Dr. Jennings - will snw draw Blood cultures, lactate, obtain urine culture and more aggressively volume resuscitate pt and then call Dr. Jennings with repeat VS and results of Lactate. Response to treatment: the patient's symptoms have markedly improved after treatment. 04:56 ED course: CT report review from 12/13/2022 - TECHNIQUE: CT of the abdomen and pelvis sp4 was performed. All CT scans are performed using dose optimization technique as appropriate and may include automated exposure control or mA/KV adjustment according to patient size. FINDINGS: Lower chest: No acute abnormality. Liver: Hepatic steatosis. Biliary: Cholecystectomy. Stomach: No significant focal abnormality. Duodenum: No significant focal abnormality. Pancreas: No significant abnormality. Spleen: No significant abnormality. Adrenal: No suspicious lesions. Kidney/ureter: Mild left-sided hydronephrosis secondary to a 7 mm stone in the left proximal ureter. Punctate stone in the right kidney. Retroperitoneum: No retroperitoneal adenopathy. Vascular: No aneurysm. Bowel: No significant focal abnormality. Peritoneum: No ascites or free air. Bladder: Grossly unremarkable. Reproductive: No adnexal masses. Hysterectomy. Bones: No acute fracture. Moderate degenerative changes at L4-5. Other: n/a IMPRESSION: Mild left-sided hydronephrosis secondary to a 7 mm stone in the left proximal ureter. Dictated By: Kota Lyon MD 12/13/22 1215. 06:36 ED course: CT today - FINDINGS: Lower thorax: Lung bases are clear Abdomen: sp4 Stomach:Within normal limits Liver:No focal lesions. Hepatic steatosis. Enlarged. No intrahepatic ductal distention. Gallbladder: Surgically absent. Pancreas: Atrophic changes. Spleen:Within normal limits Right kidney:No hydronephrosis. Renal sinus cysts noted. Multiple tiny renal stones measuring 1 to 2 mm. Left kidney: Residual contrast in the collecting system from prior CT. Moderate hydronephrosis. Proximal ureteral stone measuring 7 mm. Adrenal glands:Within normal limits Vascular structures:Within normal limits (although limited evaluation on noncontrast exam). Lymph nodes:No lymphadenopathy by size criteria Pelvis: Small bowel:No significant distention. Duodenal diverticulum noted. Appendix:Within normal limits Colon:No distention or acute pericolonic edema. Peritoneum: No free intraperitoneal fluid or air. Bones: No acute bone findings. Bladder: Under distended, limiting evaluation. Reproductive organs: No acute findings. Note that evaluation of the bowel and solid organs is somewhat limited due to lack of intravenous and oral contrast. Impression - 1. Moderate left-sided hydronephrosis secondary to proximal ureteral stone measuring 7 mm. 2. Right-sided nephrolithiasis. 3. Hepatic steatosis and hepatomegaly. . 07:14 Transition of care: After a detail discussion of the patient's case, care is sp4 transferred to Fawad Fisher MD. ED course: Patient is currently waiting for bed assignment at [facility].. 12/15 02:22 Order name: Urine W/Microscopic (UAM) snw 12/15 02:22 Order name: CBC with Diff; Complete Time: 04:43 snw 12/15 02:22 Order name: CMP; Complete Time: 03:30 snw 12/15 03:16 Order name: Manual Differential; Complete Time: 04:52 EDMS 12/15 03:37 Order name: Blood Culture Adult (2) w 12/15 03:37 Order name: Lactate w/ 2H reflex if indic.; Complete Time: 05:53 snw 12/15 03:37 Order name: Urine Culture w 12/15 05:03 Order name: CT Abd/Pelvis - Without Contrast 4 12/15 02:22 Order name: IV Saline Lock; Complete Time: 02:52 snw 12/15 02:22 Order name: Labs collected and sent; Complete Time: 02:52 snw Administered Medications: 02:50 Drug: NS 0.9% IV 1000 ml Route: IV; Rate: 1 bolus; Site: left antecubital; bp 09:45 Follow up: IV Status: Infusion continued upon transfer db 02:50 Drug: Ketorolac IVP 15 mg Route: IVP; Site: left antecubital; bp 03:10 Follow up: Response: No adverse reaction; Marked relief of symptoms jb4 02:50 Drug: Diazepam IVP 10 mg Route: IVP; Site: left antecubital; bp 03:10 Follow up: Response: No adverse reaction; Marked relief of symptoms; Pain is decreased jb4 02:50 Drug: Rocephin IV 1 grams Route: IV; Rate: calculated rate; Site: left antecubital; bp 03:00 Follow up: Response: No adverse reaction; IV Status: Completed infusion jb4 02:50 Drug: morphine IVP or IV 4 mg Route: IVP; Infused Over: 4 mins; Site: left antecubital; bp 03:10 Follow up: Response: No adverse reaction; Marked relief of symptoms; Pain is decreased jb4 05:02 CANCELLED (Duplicate Order): Albumin IVPB 25 grams 100 ml IVPB once; (Note: Albumin 25% sp4 concentration) 05:06 Drug: NS 0.9% IV 1000 ml Route: IV; Rate: 1 bolus; Site: left femoral; jb4 09:44 Follow up: Response: No adverse reaction; IV Status: Completed infusion; IV Intake: db 1000ml 05:15 Drug: HYDROmorphone IVP 1 mg Route: IVP; Site: left forearm; jb4 05:30 Follow up: Response: No adverse reaction; Marked relief of symptoms jb4 05:22 Drug: metroNIDAZOLE IVPB 500 mg Volume: 100 ml; Route: IVPB; Rate: 200 ml/hr; Infused jb4 Over: 30 mins; Site: left forearm; 05:52 Follow up: Response: No adverse reaction; IV Status: Completed infusion; IV Intake: jb4 100ml 06:48 Drug: NS 0.9% IV 1000 ml Route: IV; Rate: 1 bolus; Site: left forearm; jb4 09:44 Follow up: Response: No adverse reaction; IV Status: Completed infusion; IV Intake: db 1000ml 07:42 Drug: Acetaminophen PO 1000 mg Route: PO; db 09:44 Follow up: Response: No adverse reaction db 09:36 Drug: HYDROmorphone IVP 1 mg Route: IVP; Site: left forearm; db 09:44 Follow up: Response: No adverse reaction db Disposition: 03:47 Co-signature as Attending Physician, Mayo Samuel MD I agree with the assessment sp4 and plan of care. I reviewed the patient's care provided by Advanced Practice Provider \T\ agree w/ the diagnosis \T\ care plan. I personally saw the pt \T\ performed a substantive portion of the visit, incldng all aspects of the (History/Exam/Medical Decision Making). Disposition Summary: 12/15/22 03:08 Transfer Ordered Transfer Location: [facility] snw Reason: Specialty snw Condition: Stable snw Problem: an acute exacerbation snw Symptoms: have worsened snw Accepting Physician: [facility](12/15/22 09:46) db Diagnosis - Hydronephrosis with renal and ureteral calculous obstruction snw - Left ureteral calculus sp4 - Pyelonephritis acute sp4 Forms: - Medication Reconciliation Form snw - SBAR form snw Signatures: Dispatcher [employer] EDMS Mary Hough FNP-C ASSEMBLING MACHINE OPERATOR-Csnw Kenji Russell FNP-C ASSEMBLING MACHINE OPERATOR-Cla1 Kye Lane RN RN jb4 Ezra Lopez RN RN bp Simone Kramer RN RN as6 Kaye Hdez RN RN db Fawad Fisher MD MD rt Mayo Samuel MD MD sp4 Corrections: (The following items were deleted from the chart) 05:02 04:52 Albumin IVPB 25 grams 100 ml IVPB once; (Note: Albumin 25% concentration) sp4 ordered. sp4 06:19 03:08 [facility] snw sp4 09:46 06:19 [facility] sp4 db
[2022-12-15 03:27] LABS: Albumin 3.2 g/dL (3.4-5.0); Bilirubin Total 0.8 mg/dL (0.2-1.0); Potassium 4.2 mEq/L (3.5-5.1); Protein, Total 7.5 g/dL (6.4-8.2)
[2022-12-15 03:59] LABS: Blood Morphology Comment NOT SEEN (NOT SEEN); Platelet Estimate ADEQ
[2022-12-15] MEDS ORDERED: NA CHLORIDE 0.9% 2,000 ML ONE (05:12)
[2022-12-15] MEDS ORDERED: METRONIDAZOLE 500mg IVPB 500 MG/100 ML BAG IV ONE (05:21)
[2022-12-15] MEDS ORDERED: HYDROMORPHONE HCL 1 MG/ML INJ ONE ×2 (05:21→09:46)
[2022-12-15] MEDS ORDERED: ACETAMINOPHEN 500 MG TAB ONE (07:53)
[2022-12-15 09:00] LABS: Specific Gravity 1.029 (1.005-1.030); Urine Bacteria <20 /HPF (<20); Urine Bilirubin NEGATIVE (Negative); Urine Blood 1+ (Negative); Urine Clarity Extremely Turbid (Clear); Urine Color Yellow (Yellow); Urine Glucose NEGATIVE (Negative); Urine Mucus Slight /HPF (None Seen); Urine Protein 1+ (Negative); Urine Urobilinogen Normal (Normal); Urine pH 5.5 (5.0-7.0)
--- NOTE | 2022-12-15 09:44 | RAD REPORT ---
EXAM DESCRIPTION: CT - Abdomen Pelvis Wo Contrast - 12/15/2022 6:52 am CLINICAL HISTORY: 56 years Female ABD PAIN COMPARISON: CT abdomen pelvis 12/13/2022 TECHNIQUE: CT of the abdomen and pelvis without contrast. All CT scans at this facility use dose modulation, iterative reconstruction, and/or weight based dosi ng when appropriate to reduce radiation dose to as low as reasonably achievable. FINDINGS: Lower thorax: Lung bases are clear Abdomen: Stomach: Within normal limits Liver: No focal lesions. Hepatic steatosis. Enlarged. No intrahepatic ductal distention. Gallbladder: Surgically absent. Pancreas: Atrophic changes. Spleen: Within normal limits Right kidney: No hydronephrosis. Renal sinus cysts noted. Multiple tiny renal stones measuring 1 to 2 mm. Left kidney: Residual contrast in the collecting system from prior CT. Moderate hydronephrosis. Proxi mal ureteral stone measuring 7 mm. Adrenal glands: Within normal limits Vascular structures: Within normal limits (although limited evaluation on noncontrast exam). Lymph nodes: No lymphadenopathy by size criteria Pelvis: Small bowel: No significant distention. Duodenal diverticulum noted. Appendix: Within normal limits Colon: No distention or acute pericolonic edema. Peritoneum: No free intraperitoneal fluid or air. Bones: No acute bone findings. Bladder: Under distended, limiting evaluation. Reproductive organs: No acute findings. Note that evaluation of the bowel and solid organs is somewhat limited due to lack of intravenous and oral contrast. IMPRESSION: 1. Moderate left-sided hydronephrosis secondary to proximal ureteral stone measuring 7 mm. 2. Right-sided nephrolithiasis. 3. Hepatic steatosis and hepatomegaly. Electronically signed by: Madi Yi MD 12/15/2022 6:32 AM CDT Due to temporary technical issues with the PACS/Fluency reporting system, reports are being signed by the in house radiologist without review as a courtesy to ensure prompt reporting. The interpreting r adiologist is fully responsible for the content of the report.
[2022-12-15 10:34] VITALS: BP 124/77; TEMP 99.5; O2SAT 90
== END 2022-12-15 09:46 | disposition short-term general hospital (02) ==
LOC: ER 02:17
DX: N13.2 Hydronephrosis with renal and ureteral calculous obstruction (principal); N10 Acute pyelonephritis
CPT/HCPCS: 87040 ×2; 87088; 85025; 81001; 87086; 36415; 83605; 80053; 74176; J3360; J1170 ×2; J2405; J7030 ×2; J0696; 87106; 87186; 87205; 99285

== ENCOUNTER 2022-12-21 21:09 | Emergency (ER) | payer BC ==
[2022-12-21] MEDS ORDERED: HYDROMORPHONE HCL 1 MG/ML INJ ONE (21:46)
[2022-12-21] MEDS ORDERED: ONDANSETRON 4 MG/2 ML VIAL ONE (21:47)
[2022-12-21] MEDS ORDERED: NA CHLORIDE 0.9% 1,000 ML ONE (21:47)
[2022-12-21 22:19] LABS: Specific Gravity 1.013 (1.005-1.030); Urine Bacteria None Seen /HPF (<20); Urine Bilirubin NEGATIVE (Negative); Urine Blood Negative (Negative); Urine Clarity Extremely Turbid (Clear); Urine Color Light-Yellow (Yellow); Urine Glucose NEGATIVE (Negative); Urine Mucus Slight /HPF (None Seen); Urine Protein NEGATIVE (Negative); Urine RBC <5 /HPF (None Seen); Urine Urobilinogen Normal (Normal); Urine WBC Clump Rare /HPF (None Seen); Urine pH 7.5 (5.0-7.0)
[2022-12-21 22:31] LABS: Absolute Lymphocytes (CBC) 3.1 K/uL (0.7-4.9); Hematocrit 37.5 % (36.0-45.0); Lymphocytes % 32.8 % (15.3-44.8); MCV 88.2 fL (80-100); MPV 7.6 fL (7.6-11.3); Platelets 236 thou/uL (152-406); RBC Red Blood Cell Count 4.25 M/uL (3.86-4.86)
--- NOTE | 2022-12-21 22:32 | RAD REPORT ---
EXAM DESCRIPTION: CT - Stone Protocol - 12/21/2022 10:15 pm CLINICAL HISTORY: Flank pain. FLANK PAIN COMPARISON: Abdomen Pelvis Wo Contrast dated 12/15/2022 TECHNIQUE: Axial images were obtained without oral or IV contrast. Lack of contrast limits solid org an and vascular assessment. The [id number] spans the entirety of the system partially obscuring uppermost abdomen and lung bases. Coronal reformatted images were obtained and reviewed. All CT scans are performed using dose optimization technique as appropriate and may include automated exposure control or mA/KV adjustment according to patient size. FINDINGS: The lower lung perez are clear. Cholecystectomy clips Imaged portions of the liver and spleen show no suspicious findings on non-contrast imaging. The panc reas and adrenal glands are normal. No pathologic lymphadenopathy in the abdomen or pelvis. 7 mm calculus is present proximal left ureter with mild left hydronephrosis. A left-sided PCN cathete r is in place. Small calculi are seen in the calices of the right kidney. No bowel obstruction, free air, free fluid or abscess. Normal appendix noted.Sigmoid diverticulosis c yvrose without diverticulitis. Moderate lower lumbar degenerative changes. IMPRESSION: 7 mm stone proximal left ureter with mild left hydronephrosis. Left PCN catheter is in p lace. Small caliceal stones right kidney.
[2022-12-21 22:33] LABS: Albumin 2.6 g/dL (3.4-5.0); Bilirubin Total 0.8 mg/dL (0.2-1.0); Potassium 3.3 mEq/L (3.5-5.1); Protein, Total 7.1 g/dL (6.4-8.2)
[2022-12-21 23:14] LABS: Specific Gravity 1.007 (1.005-1.030); Urine Bacteria <20 /HPF (<20); Urine Bilirubin NEGATIVE (Negative); Urine Blood 3+ (OVER) (Negative); Urine Clarity Turbid (Clear); Urine Color Light-Yellow (Yellow); Urine Crystals Unidentified Few /HPF (None Seen); Urine Glucose NEGATIVE (Negative); Urine Mucus Slight /HPF (None Seen); Urine Protein 1+ (Negative); Urine RBC >50 /HPF (None Seen); Urine Urobilinogen Normal (Normal)
--- NOTE | 2022-12-21 23:31 | EDPHYS ---
Physician Documentation [facility] Name: Vasyl Singh Age: 56 yrs Sex: Female : 1965 Arrival Date: 12/21/2022 Time: 21:09 Bed 18 Private MD: Héctor Leary HPI: 12/21 22:51 This 56 yrs old Female presents to ER via Ambulatory with complaints of Possible Kidney kb Stone. 22:51 The patient complains of pain in the left flank. The pain does not radiate. Onset: The kb symptoms/episode began/occurred 1 week(s) ago. Modifying factors: The symptoms are alleviated by nothing. the symptoms are aggravated by nothing. Associated signs and symptoms: Pertinent positives: nausea. Severity of pain: At its worst the pain was moderate in the emergency department the pain is unchanged. The patient has experienced similar episodes in the past. The patient has been recently seen by a physician:. Pt reports she came here for left flank pain last week, was transferred to [facility] and had a nephrostomy tube placed. States she was discharged on Tuesday. Urine is draining well, but she is still having pain to left flank. No difficulty urinating. States she was told to follow up with urology on an outpatient basis for stone and tube removal. Historical: - Allergies: 21:23 No Known Allergies; lg3 - PMHx: 21:23 Anxiety; Asthma; lg3 - PSHx: 21:23 Cholecystectomy; hysterectomy; knee surgery; left nephrostomy (knee surgery); lg3 - Immunization history:: Adult Immunizations up to date, Client reports receiving the 2nd dose of the Covid vaccine, Flu vaccine is not up to date. - Social history:: Smoking status: Patient denies any tobacco usage or history of. Patient/guardian denies using alcohol, street drugs. ROS: 22:49 Constitutional: Negative for fever, chills, and weight loss, kb 22:49 Back: Positive for flank pain, on the left, 22:49 All other systems are negative, Exam: 22:49 Head/Face: Normocephalic, atraumatic. ENT: Moist Mucous membranes Cardiovascular: kb Regular rate Respiratory: Respirations even and unlabored. No increased work of breathing. Talking in full sentences Skin: Warm, dry with normal turgor. Normal color. MS/ Extremity: Pulses equal, no cyanosis. Neurovascular intact. Full, normal range of motion. Neuro: Awake and alert, GCS 15, oriented to person, place, time, and situation. Moves all extremities. Normal gait. 22:49 Back: CVA tenderness, that is moderate, is noted on the left, Vital Signs: 21:17 BP 165 / 85; Pulse 85; Resp 19 S; Pulse Ox 99% on R/A; Weight 146.96 kg (R); Height 5 lg3 ft. 7 in. (R); Pain 10/10; 23:20 BP 172 / 99; Pulse 83; Resp 16; Pulse Ox 100% on R/A; kd3 23:42 BP 141 / 75; Pulse 89; Resp 15; Pulse Ox 99% on R/A; kd3 21:17 Body Mass Index 50.75 (146.96 kg, 170.18 cm) lg3 21:17 Pain Scale: Adult lg3 MDM: 21:14 Patient medically screened. kb 22:49 Data reviewed: vital signs, nurses notes. kb 22:54 Differential diagnosis: nephrolithiasis, pyelonephritis, UTI. kb 23:34 Consideration of Admission/Observation Escalation of care including kb admission/observation considered. Management of patient was discussed with the following: Dr Rowell recommends outpatient follow up. Counseling: I had a detailed discussion with the patient and/or guardian regarding the historical points, exam findings, and any diagnostic results supporting the discharge/admit diagnosis, lab results, radiology results, the need for outpatient follow up, a family practitioner, to return to the emergency department if symptoms worsen or persist or if there are any questions or concerns that arise at home. 12/21 21:26 Order name: CBC with Diff; Complete Time: 23:37 12/21 21:26 Order name: CMP; Complete Time: 22:33 kb 12/21 21:26 Order name: Urinalysis w/ reflexes; Complete Time: 22:21 kb 12/21 21:26 Order name: Urinalysis w/ reflexes: nephrostomy 12/21 22:49 Order name: Manual Differential; Complete Time: 23:37 EDSD 12/21 23:09 Order name: Urinalysis w/ reflexes; Complete Time: 23:16 EDSD 12/21 23:16 Order name: Urine Culture EDSD 12/21 21:26 Order name: CT Stone Protocol; Complete Time: 22:34 kb 12/21 21:26 Order name: IV Saline Lock; Complete Time: 22:11 kb 12/21 21:26 Order name: Labs collected and sent; Complete Time: 22:11 kb Administered Medications: 22:05 Drug: HYDROmorphone IVP 1 mg IVP once Route: IVP; Site: right antecubital; pf1 23:48 Follow up: Response: No adverse reaction; Pain is decreased kd3 22:05 Drug: Ondansetron IVP 4 mg IVP once; over 2 minutes Route: IVP; Site: right antecubital;pf1 23:48 Follow up: Response: No adverse reaction; Nausea is decreased kd3 22:05 Drug: NS 0.9% IV 1000 ml IV at 1000 ml once Route: IV; Rate: 1000 ml; Site: right pf1 antecubital; 23:48 Follow up: IV Status: Completed infusion kd3 Disposition Summary: 12/21/22 23:31 Discharge Ordered Notes: Location: Home Condition: Stable Diagnosis - Calculus of ureter kb Followup: kb - With: Emergency Department - When: As needed - Reason: Worsening of condition Followup: kb - With: Private Physician - When: 2 - 3 days - Reason: Recheck today's complaints, Continuance of care, Re-evaluation by your physician Discharge Instructions: - Discharge Summary Sheet kb - Kidney Stones, [id number] kb - Dietary Guidelines to Help Prevent Kidney Stones kb Forms: - Medication Reconciliation Form kb - Thank You Letter kb - Antibiotic Education kb - Prescription Opioid Use kb - Patient Portal Instructions kb - Leadership Thank You Letter kb Signatures: Dispatcher [employer] [facility] Trish Hernandez, EMPLOYEE RELATIONS ASSISTANT-C EMPLOYEE RELATIONS ASSISTANT-Ckb Breonna Storey, RN RN lg3 Sara Ross RN RN pf1 Molly Woo RN kd3 Corrections: (The following items were deleted from the chart) 21:24 21:23 PMHx: left nephrostomy (Asthma); lg3 lg3 23:31 22:51 Pt reports she came here for left flank pain last week, was transferred to [facility] and had a nephrostomy tube placed. States she was discharged on Tuesday. Urine is draining well, but she is still having pain to left flank. No difficulty urinating. States she was told to follow up with urology on an outpatient basis for stone and tube removal. kb
--- NOTE | 2022-12-21 23:31 | ER ---
Nurse's Notes [facility] Name: Vasyl Singh Age: 56 yrs Sex: Female : 1965 Arrival Date: 12/21/2022 Time: 21:09 Bed 18 Private MD: Diagnosis: Calculus of ureter Presentation: 12/21 21:17 Chief complaint: Patient states: left nephrostomy tube placed 1 week ago post stone lg3 diagnosis. currently looking for doctor who will remove the stone but i cannot handle the pain any longer. Coronavirus screen: Client denies travel out of the [place] in the last 14 days. At this time, the client does not indicate any symptoms associated with coronavirus-19. Ebola Screen: No symptoms or risks identified at this time. Initial Sepsis Screen: Does the patient meet any 2 criteria? No. Patient's initial sepsis screen is negative. Does the patient have a suspected source of infection? No. Patient's initial sepsis screen is negative. Risk Assessment: Do you want to hurt yourself or someone else? Patient reports no desire to harm self or others. Onset of symptoms is unknown. 21:17 Method Of Arrival: Ambulatory lg3 21:17 Acuity: BRAN 3 lg3 Triage Assessment: 21:23 General: Appears in no apparent distress. uncomfortable, Behavior is calm, cooperative, lg3 crying. Pain: Complains of pain in right flank Pain radiates to left lower quadrant. EENT: No deficits noted. No signs and/or symptoms were reported regarding the EENT system. Neuro: No deficits noted. [place] Agitation-Sedation Scale (RASS): 0 - Alert and Calm Level of Consciousness is awake, alert, obeys commands, Oriented to person, place, time, situation. Cardiovascular: No deficits noted. Denies chest pain, shortness of breath, Capillary refill < 3 seconds Clubbing of nail beds is absent JVD is absent Patient's skin is warm and dry. Respiratory: No deficits noted. Airway is patent Respiratory effort is even, unlabored, Respiratory pattern is regular, symmetrical. GI: Abdomen is round non-distended, obese, Reports lower abdominal pain, cramping. : left nephrostomy Urine is clear, Reports cramping, pain urgency, urinary frequency. Derm: No deficits noted. No signs and/or symptoms reported regarding the dermatologic system. Skin is intact, is healthy with good turgor, Skin is dry, Skin is normal, Skin temperature is warm. Musculoskeletal: No deficits noted. No signs and/or symptoms reported regarding the musculoskeletal system. Circulation, motion, and sensation intact. Range of motion: intact in all extremities. Historical: - Allergies: 21:23 No Known Allergies; lg3 - PMHx: 21:23 Anxiety; Asthma; lg3 - PSHx: 21:23 Cholecystectomy; hysterectomy; knee surgery; left nephrostomy (knee surgery); lg3 - Immunization history:: Adult Immunizations up to date, Client reports receiving the 2nd dose of the Covid vaccine, Flu vaccine is not up to date. - Social history:: Smoking status: Patient denies any tobacco usage or history of. Patient/guardian denies using alcohol, street drugs. Screenin:21 [facility] ED Fall Risk Assessment (Adult) History of falling in the last 3 months, kd3 including since admission No falls in past 3 months (0 pts) Confusion or Disorientation No (0 pts) Intoxicated or Sedated No (0 pts) Impaired Gait No (0 pts) Mobility Assist Device Used No (0 pt) Altered Elimination No (0 pt) Score/Fall Risk Level 0 - 2 = Low Risk Maintained a safe environment. Abuse screen: Denies threats or abuse. Denies injuries from another. Nutritional screening: No deficits noted. Tuberculosis screening: No symptoms or risk factors identified. Assessment: 23:20 General: Appears uncomfortable, Behavior is calm, cooperative. Pain: Complains of pain kd3 in left lower quadrant and right flank. Neuro: Level of Consciousness is awake, alert, obeys commands, Oriented to person, place, time, situation. Cardiovascular: Patient's skin is warm and dry. Respiratory: Airway is patent Trachea deviated to right Respiratory effort is even, Respiratory pattern is regular, symmetrical. 23:21 GI: Bowel sounds present X 4 quads. Abd is soft X 4 quads Abdomen is tender to kd3 palpation in left lower quadrant. Vital Signs: 21:17 BP 165 / 85; Pulse 85; Resp 19 S; Pulse Ox 99% on R/A; Weight 146.96 kg (R); Height 5 lg3 ft. 7 in. (R); Pain 10/10; 23:20 BP 172 / 99; Pulse 83; Resp 16; Pulse Ox 100% on R/A; kd3 23:42 BP 141 / 75; Pulse 89; Resp 15; Pulse Ox 99% on R/A; kd3 21:17 Body Mass Index 50.75 (146.96 kg, 170.18 cm) lg3 21:17 Pain Scale: Adult lg3 ED Course: 21:10 Patient arrived in ED. [email or web address] 21:14 [facility] FNP-C [facility]. kb 21:14 Héctor Rowell MD is Attending Physician. kb 21:23 Triage completed. lg3 21:23 Arm band placed on right wrist. lg3 21:26 Molly Woo, RN is Primary Nurse. kd3 22:05 No provider procedures requiring assistance completed. Inserted saline lock: 22 gauge pf1 in right antecubital area, using aseptic technique. Blood collected. 22:11 Urinalysis w/ reflexes: nephrostomy Sent. pf1 22:11 Urinalysis w/ reflexes Sent. pf1 22:11 CBC with Diff Sent. pf1 22:11 CMP Sent. pf1 22:16 CT Stone Protocol In Process Unspecified. EDMS 23:21 Patient has correct armband on for positive identification. Provided Education on: . kd3 23:42 IV discontinued, intact, bleeding controlled, No redness/swelling at site. Pressure kd3 dressing applied. Administered Medications: 22:05 Drug: HYDROmorphone IVP 1 mg IVP once Route: IVP; Site: right antecubital; pf1 23:48 Follow up: Response: No adverse reaction; Pain is decreased kd3 22:05 Drug: Ondansetron IVP 4 mg IVP once; over 2 minutes Route: IVP; Site: right antecubital;pf1 23:48 Follow up: Response: No adverse reaction; Nausea is decreased kd3 22:05 Drug: NS 0.9% IV 1000 ml IV at 1000 ml once Route: IV; Rate: 1000 ml; Site: right pf1 antecubital; 23:48 Follow up: IV Status: Completed infusion kd3 Medication: 23:21 VIS not applicable for this client. kd3 Outcome: 23:31 Discharge ordered by . kb 23:42 Discharged to home ambulatory, with family, kd3 23:42 Condition: stable 23:42 Discharge instructions given to patient, family, Instructed on discharge instructions, follow up and referral plans. Demonstrated understanding of instructions, follow-up care, 23:48 Patient left the ED. kd3 Signatures: Dispatcher [employer] EDTrish Britt, BACK MAKER-C BACK MAKER-Breonna Tse, RN RN lg3 Lisset [id number] Molly Woo RN RN kd3 Sara Ross RN RN pf1 Corrections: (The following items were deleted from the chart) 21:24 21:23 PMHx: left nephrostomy (Asthma); lg3 lg3
[2022-12-21 23:36] LABS: Blood Morphology Comment NOT SEEN (NOT SEEN); Platelet Estimate ADEQ
[2022-12-22 00:43] VITALS: BP 141/75; O2SAT 99
--- OUTSIDE RECORDS SUMMARY | 2022-12-22 07:14 | XMS REPORT | Continuity of Care Document ---
:1965 Author Organization [facility] t Address [address] [place] [address] Care Team Providers Name Role Phone AGUSTIN BREWER Attending Clinician Unavailable Yin Fox MD Attending Clinician Agustin Brewer MD Attending Clinician [phone] Rogelio Quinteros MD Attending Clinician YIN FOX Attending Clinician Unavailable Teeritesh_Derick Attending Clinician Unavailable Bessy Morelos Attending Clinician Unavailable ROGELIO QUINTEROS Admitting Clinician Unavailable AGUSTIN BREWER Admitting Clinician Unavailable Teeritesh_Derick Admitting Clinician Unavailable Bessy Morelos Admitting Clinician Unavailable Payers Payer Name Policy Type Policy Number Effective Date Expiration Date S keith BCBS PPO POS EPO [id number] 2021 [place]ICE 00:00:[place] [id number] 2021 (PPO) 00:00:00 [facility] [id number] Problems Condition Condition Condition Status Onset Resolution Last Treating Co mments Source Name Details Category Date Date Treatment Clinician Date Nephrolith Nephrolith Disease Active [facility] COVID-19 Covid-19 Problem Active Colón ge 3-25 [...] 00 e Pure Pure Problem Active 2015-04 [facility] hyperglyce Hyperglyce 0-24 Fa wily ridemia ridemia 00:00: Practic 00 e Benign Benign Problem Active 2015-04 [facility] essential Essential 0-24 Fami ly hypertensi Hypertensi 00:00: Pr actic on on e Interverte Interverte Problem Active 2015-04 [facility] bral disc bral Disc 0-24 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: Practi c of lumbar of Lumbar 00 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 Allergies, Adverse Reactions, Alerts Allergy Allergy Status Severity Reaction(s) Onset Inactive Treating Comm ents Source Name Type Date Date Clinician hydromor DA Active SHIRA ROTHMAN [facility] phone 2-07 Clear HCl 00:00: Russell 00 [facility] ketorola DA Active SHIRA ROTHMAN [facility] c 2-07 Clear trometha 00:00: Russell mine 00 [facility] morphine DA Active U NOSE ITCHES [facility] 2-07 Clear 00:00: Russell 00 [facility] Lisinopr Allergy Active [facility] Practic [facility] e Losartan Allergy Active [facility] Practic e e Irbesart Allergy Active [facility] an [facility] Family substanc Practic e e NO KNOWN Allergy Active [facility] Social History Social Habit Start Date Stop Date Quantity Comments Source History SDOH [facility] Transport Non-[facility] Center Exposure to 2022-12-05 2022-12-[address] [facility] SARS-CoV-2 (event) 00:00:00 12:06:00 Medica l Center History [facility] 2022-12-15 2022-12-[address] [facility] Housing Places 00:00:00 00:00:00 Medical Ce nter Lived History [facility] 2022-12-15 2022-12-[address] [facility] Housing Homeless 00:00:00 00:00:00 Medical Center Last Year Alcohol Comment 2022-12-15 2022-12-15 last drink [address] [facility] 00:00:00 00:00:00 months ago- Medical Cente r social drinker Tobacco use and 2022-12-15 2022-12-[address] [facility] exposure 00:00[facility]00 00:00:00 non-user Medical Center Alcohol intake 2022-12-15 2022-12-15 Ex-drinker [facility] 00:[facility]:00 (finding) Medical Center History [facility] 2022-12-15 2022-12-[address] [facility] Transport Med 00:00:00 00:00:[address] History [facility] 2022-12-15 2022-12-[address] [facility] Housing Unable to 00:00:00 00:00:00 Medical Center Pay Sex Ass[birth year] At [birth year] F JAYLYN Mandujano 00:00:00 00:00:00 Medical Center Smoking Status Start Date Stop Date Source Never smoked tobacco [facility] Medications Ordered Filled Start Stop Current Ordering Indication Dosage Frequency Signature Comments Components Source Medication Medication Date Date Medication? Clinician (SIG) Name Name tamsulosin 2022- Yes .4mg QD Take [address] (FLOMAX) 12-19 capsule [facility] 0.4 mg Cap 00:00: 23:59 (0.4 mg Med ical 24 hr 00 :00 total) by [place] capsule mouth daily for 90 days. HYDROcodone 2022- Yes 1{tbl} Take [address] -acetaminop 12-18 tablet by Carli pettit (NORCO 00:00: 23:59 mouth Medic al 5-325) 00 :00 every 4 Center 5-325 mg (four) per tablet hours as needed for up to 10 days. Max Daily Amount: 6 tablets levoFLOXaci 2022- Yes 750mg Q24H Take [address] [facility] 12-18 tablet [facility] (LEVAQUIN) 00:00: 23:59 (750 mg Med ical 750 MG 00 :00 total) by Center tablet mouth daily for 10 days. ondansetron 2022- Yes 4mg Take [address] (ZOFRAN-ODT 12-18 tablet (4 Carli kes ) 4 MG 00:00: 23:59 mg total) Medic al disintegrat 00 :00 by mouth Cent er ing tablet every 8 (eight) hours as needed for up to 7 days. albuterol albuterol No albuterol [facility] sulfate HFA [...] needed. amoxicillin amoxicillin No 1 BID amoxicilli [facility] 500 mg 500 mg n 500 mg Family tablet Take tablet Take tablet Practic 1 tablet 1 tablet Take 1 e twice a day twice a day tablet by oral by oral twice a route for 7 route for 7 day by days. days. oral route for 7 days. hydrocodone hydrocodone No hydrocodon [facility] 10 10 e 10 Family mg-acetamin mg-acetamin mg-acetami Practic ophen 325 ophen 325 nophen 325 e mg tablet mg tablet mg tablet TAKE 1 TAKE 1 TAKE 1 TABLET BY TABLET BY TABLET BY MOUTH EVERY MOUTH EVERY MOUTH 4 HOURS 4 HOURS EVERY 4 NEEDED NEEDED HOURS NEEDED phentermine phentermine No 1capsul Q1D phentermin [facility] 15 mg 15 mg e(s) e 15 [...] as needed. as needed. as needed. cyclobenzap cyclobenzap No 1 TID cyclobenza [facility] rine 5 mg rine 5 mg tim [...] days. doxycycline doxycycline No 1 BID doxycyclin [facility] hyclate 100 hyclate 100 e hyclate [facility] mg tablet mg tablet 100 mg Pra [...] as needed. as needed. as needed. cyclobenzap cyclobenzap No 1 TID cyclodanielito Gloria rine 5 mg rine 5 mg [...] days. doxycycline doxycycline No 1 BID doxycyclin [facility] hyclate 100 hyclate 100 e hyclate Family [...] as needed. as needed. as needed. cyclobenzap cyclobenzap No cyclodanielito Gloria rine 5 mg rine 5 mg tim 5 mg Family tablet TAKE tablet TAKE tablet Practic 1 TABLET BY 1 TABLET BY TAKE 1 e MOUTH THREE MOUTH THREE TABLET BY TIMES DAILY TIMES DAILY MOUTH FOR 7 DAYS FOR 7 DAYS THREE NEEDED NEEDED TIMES DAILY FOR 7 DAYS NEEDED doxycycline doxycycline No doxycyclin [facility] hyclate 100 hyclate 100 e hyclate Family mg tablet mg tablet 100 mg Pra ctic TAKE 1 TAKE 1 tablet e TABLET BY TABLET BY TAKE 1 MOUTH TWICE MOUTH TWICE TABLET BY DAILY FOR DAILY FOR MOUTH 10 DAYS 10 DAYS TWICE DAILY FOR 10 DAYS meloxicam meloxicam No 1 Q1D meloxicam [facility] 15 mg 15 mg 15 mg Family tablet Take tablet Take tablet Practic 1 tablet 1 tablet Take 1 e every day every day tablet by oral by oral every day route for route for by oral 30 days. 30 days. route for 30 days. nitrofurant nitrofurant No 1capsul Q12H nitrofuran [facility] oin oin e(s) toin [facility] monohydrate monohydrate monohydrat Practic /macrocryst /macrocryst e/macrocry e als 100 mg als 100 mg stals 100 capsule capsule mg capsule Take 1 Take 1 Take 1 capsule capsule capsule every 12 every 12 every 12 hours by hours by hours by oral route oral route oral route for 7 days. for 7 days. for 7 days. prednisone prednisone No 1 Q1D prednisone [facility] 10 mg 10 mg 10 mg Family [...] needed. ciprofloxac ciprofloxac No 1 Q12H ciprofloxa [facility] in 500 mg in 500 mg matti 500 mg Family tablet Take tablet Take tablet Practic 1 tablet 1 tablet Take 1 e every 12 every 12 tablet hours by hours by every 12 oral route oral route hours by for 10 for 10 oral route days. days. for 10 days. cyclobenzap cyclobenzap No cyclobenza [facility] rine 5 mg rine 5 mg tim 5 mg Family tablet TAKE tablet TAKE tablet Practic 1 TABLET BY 1 TABLET BY TAKE 1 e MOUTH THREE MOUTH THREE TABLET BY TIMES DAILY TIMES DAILY MOUTH FOR 7 DAYS FOR 7 DAYS THREE NEEDED NEEDED TIMES DAILY FOR 7 DAYS NEEDED doxycycline doxycycline No doxycyclin [facility] hyclate 100 hyclate 100 e hyclate Family mg tablet mg tablet 100 mg Pra ctic TAKE 1 TAKE 1 tablet e TABLET BY TABLET BY TAKE 1 MOUTH TWICE MOUTH TWICE TABLET BY DAILY FOR DAILY FOR MOUTH 10 DAYS 10 DAYS TWICE DAILY FOR 10 DAYS meloxicam meloxicam No meloxicam [facility] 15 mg 15 mg 15 mg Family tablet TAKE tablet TAKE tablet Practic 1 TABLET BY 1 TABLET BY TAKE 1 e MOUTH EVERY MOUTH EVERY TABLET BY DAY DAY MOUTH EVERY DAY nitrofurant nitrofurant No nitrofuran [facility] oin oin toin Family monohydrate monohydrate monohydrat Practic /macrocryst /macrocryst e/macrocry e als 100 mg als 100 mg stals 100 capsule capsule mg capsule TAKE 1 TAKE 1 TAKE 1 CAPSULE BY CAPSULE BY CAPSULE BY MOUTH EVERY MOUTH EVERY MOUTH 12 HOURS 12 HOURS EVERY 12 FOR 7 DAYS FOR 7 DAYS HOURS FOR 7 DAYS prednisone prednisone No prednisone [facility] 10 mg 10 mg 10 mg Family tablet TAKE tablet TAKE tablet Practic 1 TABLET BY 1 TABLET BY TAKE 1 e MOUTH EVERY MOUTH EVERY TABLET BY DAY FOR 7 DAY FOR 7 MOUTH DAYS DAYS EVERY DAY FOR 7 DAYS Vital Signs Vital Name Observation Time Observation Value Comments Source HEIGHT 2022-12-15 16:00:00 170.2 cm WEIGHT 2022-12-15 16:00:00 149.687 kg HEIGHT 2022-12-15 16:00:00 170.2 cm WEIGHT 2022-12-15 16:00:00 149.687 kg HEIGHT 2022-12-15 16:00:00 170.2 cm WEIGHT 2022-12-15 16:00:00 149.687 kg BP Diastolic 2022-09-13 00:00:00 87 mm[Hg] [facility] Height 2022-09-13 00:00:00 66 [in_i] [facility] BMI (Body Mass Index) 2022-09-13 00:00:00 52.6 kg/m2 [facility] BP Systolic 2022-09-13 00:00:00 138 mm[Hg] [facility] Body Weight 2022-09-13 00:00:00 326 [lb_av] [facility] BP Diastolic 2022-06-29 00:00:00 88 mm[Hg] [facility] Height 2022-06-29 00:00:00 66 [in_i] [facility] BMI (Body Mass Index) 2022-06-29 00:00:00 52.9 kg/m2 [facility] Family Practice BP Systolic 2022-06-29 00:00:00 145 mm[Hg] [facility] Body Weight 2022-06-29 00:00:00 328 [lb_av] [facility] BP Diastolic 2022-04-08 00:00:00 95 mm[Hg] [facility] Height 2022-04-08 00:00:00 66 [in_i] [facility] BMI (Body Mass Index) 2022-04-08 00:00:00 52.7 kg/m2 [facility] BP Systolic 2022-04-08 00:00:00 148 mm[Hg] [facility] Body Weight 2022-04-08 00:00:00 326.4 [lb_av] [facility] BP Diastolic 2022-02-04 00:00:00 89 mm[Hg] [facility] Height 2022-02-04 00:00:00 66 [in_i] [facility] BMI (Body Mass Index) 2022-02-04 00:00:00 52.5 kg/m2 [facility] BP Systolic 2022-02-04 00:00:00 136 mm[Hg] [facility] Body Weight 2022-02-04 00:00:00 325 [lb_av] [facility] BP Diastolic 2021-10-21 00:00:00 99 mm[Hg] [facility] Height 2021-10-21 00:00:00 66 [in_i] [facility] BMI (Body Mass Index) 2021-10-21 00:00:00 53.3 kg/m2 [facility] BP Systolic 2021-10-21 00:00:00 146 mm[Hg] [facility] Body Weight 2021-10-21 00:00:00 330.4 [lb_av] [facility] BP Diastolic 2021-07-30 00:00:00 90 mm[Hg] [facility] Height 2021-07-30 00:00:00 66 [in_i] [facility] BMI (Body Mass Index) 2021-07-30 00:00:00 53 kg/m2 [facility] BP Systolic 2021-07-30 00:00:00 154 mm[Hg] [facility] Body Weight 2021-07-30 00:00:00 328.4 [lb_av] [facility] BP Diastolic 2021-02-20 00:00:00 94 mm[Hg] [facility] Height 2021-02-20 00:00:00 66 [in_i] [facility] BMI (Body Mass Index) 2021-02-20 00:00:00 50.8 kg/m2 [facility] BP Systolic 2021-02-20 00:00:00 145 mm[Hg] [facility] Body Weight 2021-02-20 00:00:00 315 [lb_av] [facility] BP Diastolic 2021-01-29 00:00:00 95 mm[Hg] [facility] Height 2021-01-29 00:00:00 66 [in_i] [facility] BMI (Body Mass Index) 2021-01-29 00:00:00 51.2 kg/m2 [facility] BP Systolic 2021-01-29 00:00:00 134 mm[Hg] [facility] Body Weight 2021-01-29 00:00:00 317 [lb_av] [facility] BP Diastolic 2020-10-16 00:00:00 89 mm[Hg] [facility] Height 2020-10-16 00:00:00 66 [in_i] [facility] BMI (Body Mass Index) 2020-10-16 00:00:00 51.3 kg/m2 [facility] BP Systolic 2020-10-16 00:00:00 131 mm[Hg] [facility] Body Weight 2020-10-16 00:00:00 318 [lb_av] [facility] BP Diastolic 2020-10-10 00:00:00 79 mm[Hg] [facility] Height 2020-10-10 00:00:00 66 [in_i] [facility] BMI (Body Mass Index) 2020-10-10 00:00:00 51.7 kg/m2 [facility] BP Systolic 2020-10-10 00:00:00 145 mm[Hg] [facility] Body Weight 2020-10-10 00:00:00 320.6 [lb_av] [facility] BP Diastolic 2020-08-18 00:00:00 102 mm[Hg] [facility] Height 2020-08-18 00:00:00 66 [in_i] [facility] BMI (Body Mass Index) 2020-08-18 00:00:00 51.8 kg/m2 [facility] BP Systolic 2020-08-18 00:00:00 178 mm[Hg] [facility] Body Weight 2020-08-18 00:00:00 321 [lb_av] [facility] BP Diastolic 2019-12-21 00:00:00 102 mm[Hg] [facility] Height 2019-12-21 00:00:00 66 [in_i] [facility] BMI (Body Mass Index) 2019-12-21 00:00:00 52.6 kg/m2 [facility] BP Systolic 2019-12-21 00:00:00 153 mm[Hg] [facility] Body Weight 2019-12-21 00:00:00 326 [lb_av] [facility] Height 2019-09-12 00:00:00 66 [in_i] [facility] Height 2019-08-30 00:00:00 66 [in_i] [facility] BP Diastolic 2019-05-15 00:00:00 87 mm[Hg] [facility] Height 2019-05-15 00:00:00 66 [in_i] [facility] BMI (Body Mass Index) 2019-05-15 00:00:00 52.8 kg/m2 [facility] BP Systolic 2019-05-15 00:00:00 137 mm[Hg] [facility] Body Weight 2019-05-15 00:00:00 327 [lb_av] [facility] Systolic blood 2022-12-18 12:47:00 146 mm[Hg] [facility] Diastolic blood 2022-12-18 12:47:00 75 mm[Hg] [facility] Heart rate 2022-12-18 12:47:00 99 /min [facility] Body temperature 2022-12-18 12:47:00 36.5 Olga Lidia [facility] Respiratory rate 2022-12-18 12:47:00 18 /min [facility] Oxygen saturation in 2022-12-18 12:47:00 98 /min [facility] Arterial blood by Medical Ce nter Pulse oximetry Body height 2022-12-15 16:00:00 170.2 cm [facility] Body weight 2022-12-15 16:00:00 149.687 kg [facility] BMI 2022-12-15 16:00:00 51.69 kg/m2 [facility] Procedures Procedure Date / Time Performing Clinician Source Performed ECG 12-LEAD 2022-12-17 17:23:49 Rogelio Quinteros [facility] BASIC METABOLIC PANEL 2022-12-17 08:06:00 [facility] LACTIC ACID, VENOUS 2022-12-16 10:03:00 Rogelio Quinteros [facility] BASIC METABOLIC PANEL 2022-12-16 01:08:00 Agustin Brewer [facility] CBC W/PLT COUNT & AUTO 2022-12-16 01:08:00 Agustin Brewer [facility] CBC W/PLT COUNT & AUTO 2022-12-16 01:08:00 Agustin Brewer [facility] IR PERCUTANEOUS NEPHROSTOMY 2022-12-15 17:22:00 Luigi Leon [facility] TUBE PLACEMENT [facility] PROTHROMBIN TIME/INR 2022-12-15 14:46:00 Agustin Brewer [facility] BASIC METABOLIC PANEL 2022-12-15 14:34:00 Agustin Brewer [facility] CBC W/PLT COUNT & AUTO 2022-12-15 14:34:00 Agustin Brewer [facility] CBC W/PLT COUNT & AUTO 2022-12-15 14:34:00 Agustin Brewer [facility] URINALYSIS W/ MICROSCOPIC 2022-12-15 13:44:00 Agustin Brewer [facility] US, kidney 2022-09-13 00:00:00 [facility] Casimiro maxwell Practice DUPLEX SCAN OF EXTREMITY 2022-04-08 00:00:[address] [facility] VEINS INCLUDING RESPONSES Practi ce TO COMPRESSION AND OTHER MANEUVERS; UNILATERAL OR LIMITED STUDY MAMMO, screening, digital, 2021-10-21 00:00:[address] [facility] bilateral Practice X-RAY OF CHEST 2 VIEW 2021-07-30 00:00:00 [facility] MAMMO, screening, digital, 2021-02-02 00:00:[address] [facility] bilateral Practice Kidney Excision 2020-12-19 00:00:00 [facility] Casimiro maxwell Practice MAMMO, screening, digital, 2019-12-21 00:00:[address] [facility] bilateral Practice electrocardiogram 2019-12-21 00:00:00 [facility] Rolando julien Practice X-RAY OF CHEST 2 VIEW 2019-12-21 00:00:00 [facility] MAMMO, screening, digital, 2019-05-15 00:00:00 V [facility] Practice Cholecystectomy (Gall 2011-04-04 00:00:00 [facility] Bladder Removal) Practice Hysterectomy (Partial) 1991-04-04 00:00:00 Eldon desai [facility] Knee Surgery 1990-04-04 00:00:00 [facility] Casimiro maxwell Practice Back Surgery [facility] Plan of Care Planned Activity Planned Date Details Comments Source Future Scheduled 2023-12-[address] [facility] Test 00:00:00 Counseling and Screening [facility] (12+) [code = Tobacco Cessation Counseling and Screening (12+)] Future Scheduled 2022-12-03 Influenza Vaccine (#1) [facility] 00:00:00 [code = Influenza Vaccine [facility] (#1)] Diagnostic Test 2022-09-13 urinalysis, dipstick Vill age Family Pending 00:00:00 [code = urinalysis, Practice dipstick] Diagnostic Test 2022-09-13 culture, urine [code = Vi llage Family Pending 00:00:00 culture, urine] Practice Future Scheduled 2022-04-[address] [facility] Test 00:00:00 (12+) [code = DEPRESSION [facility] SCREENING (12+)] Future Scheduled 2020-09-06 COVID-19 VACCINE (2 - [facility] Test 00:00:00 Booster for [facility] series) [code = COVID-19 VACCINE (2 - Booster for Brittney series)] Future Scheduled 2013-12-29 SHINGLES VACCINES ([address] [facility] Test 00:00:00 2) [code = SHINGLES [facility] Center VACCINES (1 of 2)] Future Scheduled 2008-12-29 Lipid panel (procedure) [facility] Test 00:00:00 [code = 05789856] Medical Ce nter Future Scheduled 1984-12-29 Screening for malignant [facility] Test 00:00:00 neoplasm of cervix Medical C enter (procedure) [code = 891614855] Future Scheduled 1982-12-29 DTAP/TDAP/TD VACCINES ([address] [facility] Test 00:00:00 - Tdap) [code = Medical Cent er DTAP/TDAP/TD VACCINES (1 - Tdap)] Future Scheduled 1981-12-29 HEPATITIS C SCREENING [facility] Test 00:00:00 [code = HEPATITIS C Medical Center SCREENING] Future Scheduled 1978-12-[address] [facility] Test 00:00:00 virus screening Medical Cent er (procedure) [code = 234413826] Future Scheduled 1963 Screening for malignant [facility] Test 00:00:00 neoplasm of breast Medical C enter (procedure) [code = 911386291] Future Scheduled 1963 CT Colonography (combo) [facility] Test 00:00:00 [code = CT Colonography [facility] (combo)] Future Scheduled 1963 Screening for malignant [facility] Test 00:00:00 neoplasm of colon Medical Ce nter (procedure) [code = 624773407] Future Scheduled 1963 Screening for malignant [facility] Test 00:00:00 neoplasm of colon Medical Ce nter (procedure) [code = 020501710] Future Scheduled 1963 Screening for malignant [facility] Test 00:00:00 neoplasm of colon Medical Ce nter (procedure) [code = 886888843] Future Scheduled 1963 Screening for malignant [facility] Test 00:00:00 neoplasm of colon Medical Ce nter (procedure) [code = 755872675] Future Scheduled 1965 Sigmoidoscopy [code = [facility] Test 00:00:00 Sigmoidoscopy] Medical [facility] r Encounters Start End Encounter Admission Attending Care Care Encounter Source Date/Time Date/Time Type Type Clinicians Facility Department ID 2022-12-15 2022-12-18 Inpatient ER OSMAN, [facility] Internal [id number] SLE 11:00:00 16:10:00 [facility] 2022-12-15 2022-12-18 [facility] Yin Fox [facility] [id number] 11:00:00 16:10:00 Encounter [facility]in Brew[facility] 2022-12-15 2022-12-15 [facility] [id number] [facility] 16:33:34 16:33:34 [place] 2022-12-15 2022-12-15 Outpatient ER BRANN, [facility] [id number] SLE 16:30:10 16:30:10 [place] 2022-12-15 2022-12-15 Travel [facility] [id number] [facility] 00:[facility] 00:00:00 [facility] 2022-09-13 2022-09-13 Outpatient Teer_J VFP VFP [id number] [facility] 00:00:00 00:00:00 [id number] Family Practic e 2022-09-13 2022-09-13 Luisa L VFP [place] - [id number] [facility] 00:00:00 00:00:00 Florecita [facility] Marlon ly DUMPER BULK SYSTEM: [address] [facility] [address], [facility] [address] , Ph. 2022-08-21 2022-08-21 Outpatient Teer_J VFP VFP [id number] [facility] 00:00:00 00:00:00 [id number] Family Practic e 2022-06-29 2022-06-29 Outpatient Teer_J VFP VFP [id number] [facility] 00:00:00 00:00:00 [id number] Family Practic e 2022-06-29 2022-06-29 Luisa L VFP [place] - [id number] [facility] 00:00:00 00:00:00 [facility]: [address] [facility] [address] [facility] [address] , Ph. 2022-06-08 2022-06-08 Outpatient Teer_J VFP VFP [id number] [facility] 00:00:00 00:00:00 [id number] Family Practic e 2022-06-08 2022-06-08 Outpatient Teer_J VFP VFP [id number] [facility] 00:00:00 00:00:00 [id number] Family Practic e 2022-04-28 2022-04-28 Outpatient Teer_J VFP VFP [id number] [facility] 00:00:00 00:00:00 [id number] Family Practic e 2022-04-22 2022-04-22 Outpatient EL Tamy, HCACL FLAQUITA [id number] [facility] 12:00:00 12:00:00 Bessy 96 [facility] 2022-04-09 2022-04-09 Outpatient Teer_J VFP VFP [id number] [facility] 00:00:00 00:00:00 [id number] Family Practic e 2022-04-09 2022-04-09 Luisa L VFP [place] - [id number] [facility] 00:00:00 00:00:00 Florecita [facility] ly DUMPER BULK SYSTEM: [address] [facility] [address], [facility] [address] , Ph. 2022-04-08 2022-04-08 Outpatient Teer_J VFP VFP [id number] [facility] 00:00:00 00:00:00 [id number] Family Practic e 2022-04-08 2022-04-08 Outpatient VFP VFP [id number] [facility] 00:00:00 00:00:00 [id number] Family Practic e 2022-04-08 2022-04-08 Outpatient VFP VFP [id number] [facility] 00:00:00 00:00:00 [id number] Family Practic e 2022-04-08 2022-04-08 Outpatient VFP VFP [id number] [facility] 00:00:00 00:00:00 83281 Family Practic e 2022-04-08 2022-04-08 Outpatient VFP VFP [id number] [facility] 00:00:00 00:00:00 [id number] Family Practic e 2022-04-08 2022-04-08 Outpatient VFP VFP [id number] [facility] 00:00:00 00:00:00 99105 Family Practic e 2022-04-08 2022-04-08 Luisa L VFP [place] - [id number] [facility] 00:00:00 00:00:00 [facility] ly DUMPER BULK SYSTEM: [address] [facility] [address], [facility] [address] , Ph. 2022-03-24 2022-03-24 Outpatient Teer_J VFP VFP [id number]- [id number] [facility] 00:00:00 00:00:00 88273 Family Practic e 2022-03-05 2022-03-05 Outpatient Teer_J VFP VFP [id number] [facility] 00:00:00 00:00:00 20835 Family Practic e 2022-03-05 2022-03-05 Outpatient VFP VFP [id number] [facility] 00:00:00 00:00:00 86260 Family Practic e 2022-02-04 2022-02-04 Outpatient Teer_J VFP VFP [id number]- [facility] 00:00:00 00:00:00 92076 Family Practic e 2022-02-04 2022-02-04 Bessy VFP [place] - [id number] V illage 00:00:00 00:00:00 [facility] Family Tamy MD: Medical - Prac tic [address] [place] [address], [facility]icia [facility] [address] , Ph. 2022-01-14 2022-01-14 Outpatient Teer_J VFP VFP [id number] [facility] 00:00:00 00:00:00 57539 Family Practic e 2022-01-04 2022-01-04 Outpatient VFP VFP [id number] [facility] 00:00:00 00:00:00 14387 Family Practic e 2021-11-30 2021-11-30 Outpatient Teer_J VFP VFP [id number]- [facility] 00:00:00 00:00:00 27737 Family Practic e 2021-10-21 2021-10-21 Luisa L Teer_J VFP [place] - [id number] 2 [facility] 00:00:00 00:00:00 [facility] Fami ly DUMPER BULK SYSTEM: [address], [place] [address] , Ph. 2021-08-12 2021-08-12 Outpatient Teer_J VFP VFP [id number]- [facility] 09:16:00 09:16:00 72794 Family Practic e 2021-07-30 2021-07-30 Luisa L Teer_J VFP [place] - [id number] 2 [facility] 00:00:00 00:00:00 [facility] Fami ly DUMPER BULK SYSTEM: [address], [place] [address] , Ph. 2021-04-01 2021-04-01 Outpatient EL Tamy, HCACL FLAUQITA [id number] [facility] 12:00:00 12:00:00 Bessy 84 [facility] 2021-03-03 2021-03-03 Outpatient Teer_J VFP VFP [id number] [facility] 12:39:00 12:39:00 62387 Family Practic e 2021-02-20 2021-02-20 Bessy Teer_J VFP [place] - [id number] [facility] 00:00:00 00:00:00 [facility] [address] Family Tamy MD: Medical - Prac tic [address], [place] [address] , Ph. 2021-02-12 2021-02-12 Outpatient Teer_J VFP VFP [id number] [facility] 01:06:00 01:06:00 45228 Family Practic e 2021-02-06 2021-02-06 Outpatient Teer_J VFP VFP [id number] [facility] 04:11:00 04:11:00 86098 Family Practic e 2021-01-29 2021-01-29 Bessy Teer_J VFP - [id number] [facility] 00:00:00 00:00:00 [facility] 88108 Family Tamy MD: Medical - Prac tic [address], [place] [address] , Ph. 2021-01-22 2021-01-22 Outpatient Teer_J VFP VFP [id number]- [facility] 06:12:00 06:12:00 47753 Family Practic e 2020-12-15 2020-12-15 Outpatient Teer_J VFP VFP [id number] [facility] 03:21:00 03:21:00 70715 Family Practic e 2020-12-02 2020-12-02 Outpatient Teer_J VFP VFP [id number] [facility] 01:12:00 01:12:00 62560 Family Practic e 2020-10-25 2020-10-25 Outpatient Teer_J VFP VFP [id number] [facility] 02:31:00 02:31:00 52969 Family Practic e 2020-10-24 2020-10-24 Outpatient Teer_J VFP VFP [id number] [facility] 01:04:00 01:04:00 13392 Family Practic e 2020-10-16 2020-10-16 Bessy Teer_J VFP [place] - [id number] [facility] 00:00:00 00:00:00 [facility] 61976 Family Tamy MD: Medical - Prac tic [address], [place] [address] , Ph. 2020-10-13 2020-10-13 Outpatient Teer_J VFP VFP [id number] [facility] 02:49:00 02:49:00 07925 Family Practic e 2020-10-10 2020-10-10 Bessy Teer_J VFP [place] - [id number] [facility] 00:00:00 00:00:00 [facility] 87906 Family Tamy MD: Medical - Prac tic [address], [place] [address] , Ph. 2020-09-30 2020-09-30 Outpatient Teer_J VFP VFP [id number] [facility] 04:43:00 04:43:00 [id number] Family Practic e 2020-09-20 2020-09-20 Outpatient Teer_J VFP VFP [id number]- [facility] 03:19:00 03:19:00 [id number] Family Practic e 2020-09-10 2020-09-10 Outpatient Teer_J VFP VFP [id number] [facility] 10:14:00 10:14:00 70463 Family Practic e 2020-08-22 2020-08-22 Outpatient Teer_J VFP VFP [id number] [facility] 11:52:00 11:52:00 56936 Family Practic e 2020-08-18 2020-08-18 Bessy Teer_J VFP [place] - [id number] [facility] 00:00:00 00:00:00 [facility] 77043 Family Tamy MD: Medical - Prac tic [address], [place] [address] , Ph. 2020-05-28 2020-05-28 Outpatient Teer_J VFP VFP [id number] [facility] 04:29:00 04:29:00 52479 Family Practic e 2020-02-17 2020-02-17 Outpatient Teer_J VFP VFP [id number]- [facility] 01:02:00 01:02:00 90810 Family Practic e 2020-01-13 2020-01-13 Outpatient Teer_J VFP VFP [id number] [facility] 01:02:00 01:02:00 37342 Family Practic e 2019-12-27 2019-12-27 Outpatient Teer_J VFP VFP [id number] [facility] 12:48:00 12:48:00 96820 Family Practic e 2019-12-26 2019-12-26 Outpatient Teer_J VFP VFP [id number] [facility] 04:45:00 04:45:00 45352 Family Practic e 2019-12-21 2019-12-21 Bessy Teer_J VFP [place] - [id number] [facility] 00:00:00 00:00:00 [facility] 13831 Family Tamy MD: Medical - Prac tic [address], [place] [address] , Ph. 2019-12-15 2019-12-15 Outpatient Teer_J VFP VFP [id number]- [facility] 05:23:00 05:23:00 87637 Family Practic e 2019-09-29 2019-09-29 Outpatient Teer_J VFP VFP [id number] [facility] 12:40:00 12:40:00 64346 Family Practic e 2019-09-16 2019-09-16 Outpatient Teer_J VFP VFP [id number] [facility] 09:17:00 09:17:00 [id number] Family Practic e 2019-09-13 2019-09-13 Outpatient Teer_J VFP VFP [id number]- [facility] 04:13:00 04:13:00 31890 Family Practic e 2019-09-12 2019-09-12 Bessy Teer_J VFP [facility] [id number] [facility] 00:00:00 00:00:00 [facility] 98008 Family Tamy MD: Medical - Prac tic [address], [place] [address] , Ph. 2019-09-04 2019-09-04 Outpatient Teer_J VFP VFP [id number] [facility] 07:14:00 07:14:00 [id number] Family Practic e 2019-08-30 2019-08-30 Shivjit Teer_J VFP [facility] [id number] [facility] 00:00:00 00:00:00 [facility] [address] Family Mikayla MD: Medical - Prac tic [address], [place] [address] , Ph. 2019-05-22 2019-05-22 Outpatient Teer_J VFP VFP [id number] [facility] 03:48:00 03:48:00 33555 Family Practic e 2019-05-15 2019-05-15 Bessy Teer_J VFP [facility] [id number] [facility] 00:00:00 00:00:00 [facility] 536[address] Family Tamy MD: Medical - Prac tic [address], [place] [address] , Ph. 2019-05-09 2019-05-09 Outpatient Teer_J VFP VFP [id number]- [facility] 12:58:00 12:58:00 73876 Family Practic e 2019-05-05 2019-05-05 Outpatient Teer_J VFP VFP [id number] [facility] 04:04:00 04:04:00 37646 Family Practic e 2019-05-04 2019-05-04 Outpatient Teer_J VFP VFP [id number] [facility] 05:33:00 05:33:00 08373 Family Practic e 2019-02-07 2019-02-07 Outpatient Teer_J [facility] [id number] [facility] 08:23:00 08:23:00 [id number] Family Practic e Results Test Description Test Test Results Result Source Time Comments Comments IR PERCUTANEOUS 2022-12- NEPHROSTOMY - 15 EXT. DRAIN 09:16:[address] [facility] - MEDICAL PLACEMENT CENTERName: JOVANNY MARC : 1965 Sex: F *PROCEDURE: Genitourinary catheter placementProcedural PersonnelAttending physician(s): Laly Rose physician(s): Nikko Godinez physician(s): None[facility] provider(s): NonePre-procedure diagnosis: Left obstructive uropathyPost-procedure diagnosis: SameIndication: Urinary obstructionCatheter(s) placed because the previous catheter(s) became dislodgedwithin 30 days of placement (QCDR): NoAdditional clinical history: NoneComplications: No immediate complications.IMPRESSION:Techn ically successful left percutaneous nephrostomy catheter placement.Plan: Catheter connected to drainage bag and allowed to drain by gravity.Routine catheter exchange in 3 months. PROCEDURE SUMMARY- Target organ: Unilateral [place]- Image-guided placement of genitourinary catheter(s)- Additional procedure(s): NonePROCEDURE DETAILS:Pre-procedureConsent: Informed consent for the procedure including risks, benefitsand alternatives was obtained and time-out was performed prior to theprocedure.Preparation: The site was prepared and draped using maximal sterilebarrier technique including cutaneous antisepsis.Anesthesia/sedation Level of anesthesia/sedation: Moderate sedation (conscious sedation)Anesthesia/sedation administered by: Independent trained observer underattending supervision with continuous monitoring of the patient?s levelof consciousness and physiologic statusTotal intra-service sedation time (minutes): 30Left genitourinary catheter placementLocal anesthesia was administered. A needle was advanced into the renalcollecting system under ultrasound and fluoroscopy guidance. A wire wasadvanced, the tract was serially dilated and a nephrostomy tube wasplaced. Contrast injection was performed.Genitourinary catheter placed: 8.5 Japanese percutaneous nephrostomycatheter Findings: Filling defect consistent with urinary calculus at the UPJwith moderate associated hydronephrosis. Nephrostomy catheter pigtailpositioned in the renal pelvis.External catheter securement: Non-absorbable sutureAdditional genitourinary system interventionGenitourinary intervention: NoneLocation of intervention: Not applicableDevice used: Not applicableDescription of intervention: Not applicablePost-intervention findings: Not applicableContrastContrast agent: Isovue 370Contrast volume (mL): 10Radiation DoseFluoroscopy time (minutes): 0.5 Reference air kerma (Not provided by imaging equipment): 0 Kerma area product (Not provided by imaging equipment): 0 Additional DetailsAdditional description of procedure: NoneEquipment details: NoneSpecimens removed: None. A sample was not sent for analysis.Estimated blood loss (mL): Less than 10Standardized report: SIR_GUCatheterPlacement_v3Atte stationSigner name: Thomas Mohan attest that I was present for the entire procedure. I reviewed thestored images and agree with the report as written.Electronically Signed By: Thomas Johnson12/17/2022 09:18 CDTWorkstation Name: [id number] BASIC METABOLIC PANEL 2022-12-17 08:45:21 Test Item Value Reference Range Interpretation Comme nts SODIUM (BEAKER) (test 134 meq/L 136-145 L code = 381) POTASSIUM (BEAKER) 4.4 meq/L 3.5-5.1 Specimen moderately hemolyzed (test code = 379) CHLORIDE (BEAKER) (test 105 meq/L 98-107 code = 382) CO2 (BEAKER) (test code 23 meq/L 22-29 = 355) BLOOD UREA NITROGEN 21 mg/dL 7-21 (BEAKER) (test code = 354) CREATININE (BEAKER) 1.34 mg/dL 0.57-1.25 H Specimen moderately hemolyzed (test code = 358) GLUCOSE RANDOM (BEAKER) 94 mg/dL 70-105 (test code = 652) CALCIUM (BEAKER) (test 8.5 mg/dL 8.4-10.2 code = 697) EGFR (BEAKER) (test 46 mL/min/1.73 sq In terpretation of eGFR values code = 1092) m Stage Descripti on Result G1 Normal or high >=90 G2 Mildly decreased 60-89 G3a Mildly to moderately 45-5 9 G3b Moderately to severely 30- 44 G4 Severly decreased 15-29 G5 Kidney failure <15Repo rted eGFR is based on the CK D-EPI 2020 equation that d oes not use a race coefficien tEstimated GFR is not as accurate as Creatinine Clearance in pr edicting glomerular filt ration rate. Estimated GFR i s not applicable for dialysis damian banda Lending Advisor ID - ADMINSpecimen slightly ictericLACTIC ACID, [id number] 10:30:40 Test Item Value Reference Range Interpretation Comments LACTATE BLOOD VENOUS 1.03 mmol/L 0.50-2.00 Specime n slightly (2) (BEAKER) (test hemolyzed code = 5632) Lending Advisor ID - ADMINBASIC METABOLIC [id number] 01:42:56 Test Item Value Reference Range Interpretation Comments SODIUM (BEAKER) 135 meq/L 136-145 L (test code = 381) POTASSIUM 4.1 meq/L 3.5-5.1 (BEAKER) (test code = 379) CHLORIDE (BEAKER) 107 meq/L 98-107 (test code = 382) CO2 (BEAKER) 21 meq/L 22-29 L (test code = 355) BLOOD UREA 19 mg/dL 7-21 NITROGEN (BEAKER) (test code = 354) CREATININE 1.45 mg/dL 0.57-1.25 H (BEAKER) (test code = 358) GLUCOSE RANDOM 119 mg/dL 70-105 H (BEAKER) (test code = 652) CALCIUM (BEAKER) 8.2 mg/dL 8.4-10.2 L (test code = 697) EGFR (BEAKER) 42 Interpretatio n of eGFR (test code = mL/min/1.73 values Stage De scription 1092) sq m Result G1 Evy l or high >=90 G2 Mildly decreased 60-89 G3a Mildl y to moderately 45-5 9 G3b Moderately to s everely 30-44 G4 Severl y decreased 15-29 G5 Kidney failure <15Reported eGF R is based on the CKD-EPI 2020 equation that d oes not use a race coefficientEsti mated GFR is not as accur ate as Creatinine Ria nidhi in predicting glom erular filtration rate . Estimated GFR is not appl icable for dialysis patien ts Lending Advisor ID - ADMINCBC W/PLT COUNT & AUTO [id number] 01:35:42 Test Item Value Reference Range Interpretation Comments WHITE BLOOD CELL COUNT (BEAKER) 5.2 K/ L 3.5-10.5 (test code = 775) RED BLOOD CELL COUNT (BEAKER) 4.41 M/ L 3.93-5.22 (test code = 761) HEMOGLOBIN (BEAKER) (test code = 12.9 GM/DL 11.2-15.7 410) HEMATOCRIT (BEAKER) (test code = 39.0 % 34.1-44.9 411) MEAN CORPUSCULAR VOLUME (BEAKER) 88 fL 79-95 (test code = 753) MEAN CORPUSCULAR HEMOGLOBIN 29.3 pg 25.6-32.2 (BEAKER) (test code = 751) MEAN CORPUSCULAR HEMOGLOBIN CONC 33.1 GM/DL 32.2-35.5 (BEAKER) (test code = 752) RED CELL DISTRIBUTION WIDTH 14.1 % 11.7-14.4 (BEAKER) (test code = 412) PLATELET COUNT (BEAKER) (test 141 K/CU MM 150-450 L code = 756) MEAN PLATELET VOLUME (BEAKER) 10.4 fL 9.4-12.3 (test code = 754) NUCLEATED RED BLOOD CELLS 0 /100 WBC 0-0 (BEAKER) (test code = 413) NEUTROPHILS RELATIVE PERCENT 94 % (BEAKER) (test code = 429) LYMPHOCYTES RELATIVE PERCENT 3 % (BEAKER) (test code = 430) MONOCYTES RELATIVE PERCENT 1 % (BEAKER) (test code = 431) EOSINOPHILS RELATIVE PERCENT 0 % (BEAKER) (test code = 432) BASOPHILS RELATIVE PERCENT 0 % (BEAKER) (test code = 437) NEUTROPHILS ABSOLUTE COUNT 4.87 K/ L 1.56-6.13 (BEAKER) (test code = 670) LYMPHOCYTES ABSOLUTE COUNT 0.17 K/ L 1.18-3.74 L (BEAKER) (test code = 414) MONOCYTES ABSOLUTE COUNT (BEAKER) 0.06 K/ L 0.24-0.36 L (test code = 415) EOSINOPHILS ABSOLUTE COUNT 0.00 K/ L 0.04-0.36 L (BEAKER) (test code = 416) BASOPHILS ABSOLUTE COUNT (BEAKER) 0.01 K/ L 0.01-0.08 (test code = 417) IMMATURE GRANULOCYTES-RELATIVE 1.20 % 0.00-1.00 H PERCENT (BEAKER) (test code = 2801) Urinalysis w/ [id number] 16:37:06 Test Item Value Reference Range Interpretation Comments Color, UA (test code Brown = 5778-6) Clarity, UA (test Cloudy code = 5767-9) Specific Liguori, UA 1.039 1.001-1.035 H (test code = 5811-5) pH, UA (test code = 5.5 5.0-8.0 5803-2) Protein, UA (test 70 mg/dL Negative A code = 73704-1) Glucose, UA (test Negative Negative code = 365) Ketones, UA (test Negative Negative code = 2514-8) Bilirubin, UA (test Negative Negative code = 90747-5) Blood, UA (test code Small Negative A = 38769-0) Nitrite, UA (test Negative Negative code = 5802-4) Leukocytes, UA (test Trace Negative A code = 5799-2) Urobilinogen, UA 0.2 0.2-1.0 (test code = 65975-1) RBC, UA (test code = 11 See_Comment [Autom ated 99147-1) message] The system which generated this result transmit homero reference range : /HPF. The reference range was not used to interpret this result as normal/abnormal . WBC, UA (test code = 3 See_Comment [Autom ated 5821-4) message] The system which generated this result transmit homero reference range : /HPF. The reference range was not used to interpret this result as normal/abnormal . Bacteria, UA (test Moderate code = 55935-8) Mucus (test code = Rare 8247-9) Squam Epithel, UA 23 See_Comment [Automate d (test code = 66337-2) messag e] The system which generated this result transmit homero reference range : /HPF. The reference range was not used to interpret this result as normal/abnormal . Hyaline Casts, UA 2 See_Comment [Automate d (test code = 69912-0) messag e] The system which generated this result transmit homero reference range : /LPF. The reference range was not used to interpret this result as normal/abnormal . Specimen Source (test Urine, Voided code = 2795) KARLENE (test code = KARLENE) Lending Advisor ID - [auto]Lending Advisor ID - tech Lab Interpretation Abnormal (test code = 90182-8) [facility]/ [id number] 16:37:06 Test Item Value Reference Range Interpretation Comments COLOR (BEAKER) (test code = Brown 470) CLARITY (BEAKER) (test code = Cloudy 469) SPECIFIC GRAVITY UA (BEAKER) 1.039 1.001-1.035 H (test code = 468) PH UA (BEAKER) (test code = 5.5 5.0-8.0 467) PROTEIN UA (BEAKER) (test code 70 mg/dL Negative A = 464) GLUCOSE UA (BEAKER) (test code Negative Negative = 365) KETONES UA (BEAKER) (test code Negative Negative = 371) BILIRUBIN UA (BEAKER) (test Negative Negative code = 462) BLOOD UA (BEAKER) (test code = Small Negative A 461) NITRITE UA (BEAKER) (test code Negative Negative = 465) LEUKOCYTE ESTERASE UA (BEAKER) Trace Negative A (test code = 466) UROBILINOGEN UA (BEAKER) (test 0.2 0.2-1.0 code = 463) RBC UA (BEAKER) (test code = 11 /HPF 519) WBC UA (BEAKER) (test code = 3 /HPF 520) BACTERIA (BEAKER) (test code = Moderate 517) MUCUS (BEAKER) (test code = Rare 1574) SQUAMOUS EPITHELIAL (BEAKER) 23 /HPF (test code = 516) HYALINE CASTS (BEAKER) (test 2 /LPF code = 514) SOURCE(BEAKER) (test code = Urine, Voided 0017) Lending Advisor ID - [auto]Lending Advisor ID - techBASIC METABOLIC [id number] 15:37:27 Test Item Value Reference Range Interpretation Comments SODIUM (BEAKER) 136 meq/L 136-145 (test code = 381) POTASSIUM 4.5 meq/L 3.5-5.1 Specimen slight ly (BEAKER) (test hemolyzed code = 379) CHLORIDE (BEAKER) 110 meq/L 98-107 H (test code = 382) CO2 (BEAKER) 15 meq/L 22-29 L (test code = 355) BLOOD UREA 15 mg/dL 7-21 NITROGEN (BEAKER) (test code = 354) CREATININE 1.59 mg/dL 0.57-1.25 H Specimen slight ly (BEAKER) (test hemolyzed code = 358) GLUCOSE RANDOM 91 mg/dL 70-105 (BEAKER) (test code = 652) CALCIUM (BEAKER) 8.0 mg/dL 8.4-10.2 L (test code = 697) EGFR (BEAKER) 37 Interpretatio n of eGFR (test code = mL/min/1.73 values Stage De scription 1092) sq m Result G1 Evy l or high >=90 G2 Mildly decreased 60-89 G3a Mildl y to moderately 45-5 9 G3b Moderately to s everely 30-44 G4 Severl y decreased 15-29 G5 Kidney failure <15Reported eGF R is based on the CKD-EPI 2021 equation that d oes not use a race coefficientEsti mated GFR is not as accur ate as Creatinine Ria terrell in predicting glom erular filtration rate . Estimated GFR is not appl icable for dialysis patien ts Lending Advisor ID - ADMINPROTHROMBIN TIME/[id number] 15:29:08 Test Item Value Reference Range Interpretation Comments PROTIME (BEAKER) 15.3 seconds 11.9-14.2 H (test code = 759) INR (BEAKER) (test 1.29 See_Comment [Automat ed message] code = 370) The system Augure generated this result transmitted ref erence range: <=5.90. The reference range was not used to int erpret this result as normal/abnormal . RECOMMENDED COUMADIN/WARFARIN INR THERAPY RANGESSTANDARD DOSE: 2.0 - 3.0 Includes: PROPHYLAXIS for venous thrombosis, systemic embolization; TREATMENT for venous thrombosis and/or pulmonary embolus.HIGH RISK: Target INR is 2.5-3.5 for patients with mechanical heart valves.CBC W/PLT COUNT & AUTO [id number] 15:08:45 Test Item Value Reference Range Interpretation Comments WHITE BLOOD CELL COUNT (BEAKER) 8.2 K/ L 3.5-10.5 (test code = 775) RED BLOOD CELL COUNT (BEAKER) 4.67 M/ L 3.93-5.22 (test code = 761) HEMOGLOBIN (BEAKER) (test code = 13.7 GM/DL 11.2-15.7 410) HEMATOCRIT (BEAKER) (test code = 41.9 % 34.1-44.9 411) MEAN CORPUSCULAR VOLUME (BEAKER) 90 fL 79-95 (test code = 753) MEAN CORPUSCULAR HEMOGLOBIN 29.3 pg 25.6-32.2 (BEAKER) (test code = 751) MEAN CORPUSCULAR HEMOGLOBIN CONC 32.7 GM/DL 32.2-35.5 (BEAKER) (test code = 752) RED CELL DISTRIBUTION WIDTH 14.2 % 11.7-14.4 (BEAKER) (test code = 412) PLATELET COUNT (BEAKER) (test 167 K/CU MM 150-450 code = 756) MEAN PLATELET VOLUME (BEAKER) 10.1 fL 9.4-12.3 (test code = 754) NUCLEATED RED BLOOD CELLS 0 /100 WBC 0-0 (BEAKER) (test code = 413) NEUTROPHILS RELATIVE PERCENT 96 % (BEAKER) (test code = 429) LYMPHOCYTES RELATIVE PERCENT 2 % (BEAKER) (test code = 430) MONOCYTES RELATIVE PERCENT 1 % (BEAKER) (test code = 431) EOSINOPHILS RELATIVE PERCENT 0 % (BEAKER) (test code = 432) BASOPHILS RELATIVE PERCENT 0 % (BEAKER) (test code = 437) NEUTROPHILS ABSOLUTE COUNT 7.85 K/ L 1.56-6.13 H (BEAKER) (test code = 670) LYMPHOCYTES ABSOLUTE COUNT 0.20 K/ L 1.18-3.74 L (BEAKER) (test code = 414) MONOCYTES ABSOLUTE COUNT (BEAKER) 0.08 K/ L 0.24-0.36 L (test code = 415) EOSINOPHILS ABSOLUTE COUNT 0.00 K/ L 0.04-0.36 L (BEAKER) (test code = 416) BASOPHILS ABSOLUTE COUNT (BEAKER) 0.01 K/ L 0.01-0.08 (test code = 417) IMMATURE GRANULOCYTES-RELATIVE 0.50 % 0.00-1.00 PERCENT (BEAKER) (test code = 2801) Bacteria identified in Urine by [id number] 00:00:00 Test Item Value Reference Range Interpretation Comments urine culture, routine (test final report A code = urine culture, routine) result 1 (test code = result escherichia coli A 1) antimicrobial susceptibility comment (test code = antimicrobial susceptibility) [facility] ([facility]) panel - [id number] 13:27:32 Test Item Value Reference Range Interpretation Comments Interpretation UA test Automated performed using: (test device/analyzer code = Interpretation UA (95321,QW) test performed using:) Interpretation Color Yellow (test code = Interpretation Color) Interpretation Clarity Cloudy (test code = Interpretation Clarity) Interpretation Glucose Negative (mg/dL) (test code = Interpretation Glucose (mg/dL)) Interpretation Bilirubin Negative (test code = Interpretation Bilirubin) Interpretation Ketone Negative (mg/dL) (test code = Interpretation Ketone (mg/dL)) Interpretation Specific (Greater than or Liguori (test code = equal to) >= 1.030 Interpretation Specific Liguori) Interpretation Occult Negative Blood (test code = Interpretation Occult Blood) Interpretation pH (test 5 code = Interpretation pH) Interpretation Protein Negative (test code = Interpretation Protein) Interpretation 0.2 Urobilinogen (test code = Interpretation Urobilinogen) Interpretation Nitrites Positive (test code = Interpretation Nitrites) Interpretation Leukocytes Small (test code = Interpretation Leukocytes) [facility]dipstick) panel - [id number] 09:18:43 Test Item Value Reference Range Interpretation Comments Color Color (test code = Color yellow Color) Color Appearance (test code = Color cloudy Appearance) Color Glucose (test code = Color negative Glucose) Color Bilirubin (test code = Color negative Bilirubin) Color Ketones (test code = Color negative Ketones) Color Specific Liguori (test code = 1.025 Color Specific Liguori) Color Blood (test code = Color negative Blood) Color PH (test code = Color PH) 5.5 Color Protein (test code = Color negative Protein) Color Urobilinogen (test code = 0.2 Color Urobilinogen) Color Nitrites (test code = Color positive Nitrites) Color Leukocytes (test code = Color negative Leukocytes) [facility]Com[facility] - Serum or [...] (test code = anion 10 calc gap) [facility] - Serum or [id number] 00:00:00 Test Item Value Reference Range Interpretation [...] Serum or Plasma (test code = 2089-1) [facility] PracticeDrugs identified in Urine by Screen [id number] 06:58:00 Test Item Value Reference Range Interpretation [...] oxidant (test code = negative <200 oxidant) [facility] Practicedrug monitoring [id number] 06:58:00Notes and CommentsVillage [facility]Comprehensive [facility] 2000 panel - Serum or [id number] 08:14:00 Test Item Value Reference Range Interpretation [...] (test code = anion gap) 9 calc [facility] 1996 [facility] - Serum or [id number] 08:14:00 Test Item Value Reference Range Interpretation [...] Serum or Plasma (test code = 2089-1) [facility] HospitalSzvvncaf34-Jniveodzvcelmn D3+25-Hydroxyvitamin D2 [Mass/volume] in Serum or [id number] 08:14:00 Test Item Value Reference Range Interpretation Comments vitamin D 25OH (test code = 23.7 NG/mL 30.0-96.0 L vitamin D 25OH) [facility] HospitalHemoglobin A1c/Hemoglobin.total in [id number] 17:16:00 Test Item Value Reference Range Interpretation Comments Hemoglobin A1c/Hemoglobin.total in 5.4 % 1.0-5.7 Blood (test code = 4548-4) average blood glucose (calculation) 108 mg/dL (test code = average blood glucose (calculation)) [facility] HospitalEK [id number] 15:57:00 Test Item Value Reference Range Interpretation Comments Rate & Rhythm (test code = Rate & NSR Rhythm) QRS (test code = QRS) HI Interval (test code = HI Interval) 166 QRS Duration (test code = QRS Duration) 92 QT Interval (test code = QT Interval) 364 [facility]
== END 2022-12-21 23:48 | disposition home or self-care (01) ==
LOC: ER 21:09
DX: N20.1 Calculus of ureter (principal)
CPT/HCPCS: 87088; 85025; 81001 ×2; 87086; 36415; 80053; 76377; 74176; J1170; J2405; J7030